=== PATIENT | male | born 1940 | race Caucasian/White ===

== ENCOUNTER 2017-08-16 18:03 | Inpatient (IN) ==
[2017-08-16] MEDS ORDERED: Acetaminophen 325 MG TABLET PO PRN (22:50)
[2017-08-16] MEDS ORDERED: *HR* Promethazine 25 MG/ML VIAL IVP PRN (22:50)
[2017-08-16] MEDS ORDERED: MOM Conc 10 ML UD.LIQ PO PRN (22:50)
[2017-08-16] MEDS ORDERED: *HR* HYDROcodone/Acet 5/325 mg TABLET PO PRN (22:50)
[2017-08-16] MEDS ORDERED: Naloxone 0.4 MG/ML INJ IVP PRN (22:50)
[2017-08-16] MEDS ORDERED: *HR* Morphine 2 MG/ML SYRINGE IVP PRN (22:50)
[2017-08-16] MEDS ORDERED: Nitroglycerin 0.4 MG TAB.SUBL SL PRN (22:52)
[2017-08-16] MEDS: *HR* Warfarin 3 MG TABLET PO SCH (23:37)
--- NOTE | 2017-08-17 00:44 | Internal Med History&Physical ---
Date of Encounter: 08/16/17 Time of Encounter: 23:00 Assessment and Plan (1) NSTEMI (non-ST elevated myocardial infarction) Current visit: Yes Status: Acute Concerned for acute TN with elevated Troponin, which started trending high now, and sudden onset tremors this morning, as well as non specific EKG changes slightly elevated ST segments in Prashant lateral leads compare to this morning Will keep him NPO Started him on ASA On Coumadin and Theraputic INR Resumed home med B kathy He is high risk pt for cardiac cath too, due to his KOBE will talk to Rejector in AM for possible Cardiac cath vs Stress test Mean while will get 2D echo (2) Atrial fibrillation with rapid ventricular response Current visit: No Status: Acute Will admit the pt into Tele Reviewed his previous EKG's in last week, he seems to be in Chronic Afib Unclear what triggered to RVR this time - possible TN d/c Cardizem -- not a good candidate for Cardizem due to his severe systolic dysfunction his HR well controlled now .. cont home med PO Metoprolol on coumadin for anticoag (3) Systolic CHF, chronic Current visit: Yes Status: Chronic stable..not in exacerbation reviewed 2 D Echo from 06/26 showed LVEF 15-20%, global dysfunction resumed all home meds except Lasix (4) CKD (chronic kidney disease) stage 4, GFR 15-29 ml/min Current visit: No Status: Chronic stable Cr (5) H/O thoracic aortic aneurysm repair Current visit: No Status: Chronic (6) H/O mitral valve replacement Current visit: No Status: Chronic s/p bio prosthetic valve replacement (7) Hypertension Current visit: No Status: Chronic stable with current meds Qualifiers: Hypertension type: essential hypertension Qualified Code(s): I10 - Essential (primary) hypertension (8) Dyslipidemia Current visit: No Status: Chronic on statin Internal Medicine - H&P: HPI Chief complaint: Generalized tremors, Afib with RVR Admitted From: Emergency Dept Plans for Post Hospital Care: Home History of present illness: Mr. Rangel is a 77 year old male with a past medical history of hypertension, CAD -- CABG, Chronic atrial fibrillation, hyperlipidemia, COPD, ischemic cardiomyopathy, mitral valve replacement with bovine tissue valve, thoracic aortic aneurysm pt presented to [facility] this morning c/o generalized tremors and shakiness all over the body which resolved sponatrenously. However he felt saome nasueadted and palpitation for which pt went to ER. After to coming the ER he happened to be n Afib with RVR with HR in 154, so he was given Cardizem bolus and started him on Cardizem gtt eventualy his HR came down to 60' s. Our hospitlaist team asked to admit the pt here at [facility] for further monitoring. When I examined the pt he is resting comfortably, denied any CP / SOB. Denied any new complaints. His Troponin went up to 0.99 from 0.05. Past Med Surg Social Fam HX - Past Medical History Medical history: aortic aneurysm, arthritis, atrial fibrillation, cardiomyopathy , CHF, COPD, GERD, hyperlipidemia, hypertension, kidney stones, osteoporosis, peripheral artery disease, renal disease, thyroid disease, valvular heart disease, other Psychiatric history: anxiety - Past Surgical History Surgical History: heart valve replacement, herniorrhaphy, vascular surgery - Social History Smoking Status: Never smoker Smokeless Tobacco Status: No Alcohol use: none Drug use: none - Family History Daughter Adopted: [place]: Allison Age: 34 Family Member Ethnicity: Non- Living Status: Still Living Hx Family Cardiac Disorders: No Hx Family Respiratory Disorders: No Hx Family Cancer: No Hx Family GI Disorders: No Hx Family Genitourinary Disorders: No Hx Family Endocrine Disorder: No Hx Family Musculoskeletal Disorders: No Hx Family Neuromuscular Disorders: No Hx Family Neurologic Disorders: No Hx Family HEENT Disorders: No Hx Family Autoimmune Disorders: No Hx Family Reproductive Disorders: No Hx Family Psychosocial Disorders: Yes (Asperger's syndrome) Hx Family Medical Disorders: No Mother Adopted: No Living Status: Hx Family Cardiac Disorders: No Hx Family Respiratory Disorders: No Hx Family Cancer: No Hx Family GI Disorders: Yes (bleeding ulcer) Hx Family Endocrine Disorder: No Hx Family Neuromuscular Disorders: No Hx Family Neurologic Disorders: No Hx Family HEENT Disorders: No Hx Family Autoimmune Disorders: No Father Adopted: No Living Status: Hx Family Cardiac Disorders: No Hx Family Respiratory Disorders: Yes (Emphysema) Hx Family Cancer: No Hx Family GI Disorders: No Hx Family Endocrine Disorder: No Hx Family Neuromuscular Disorders: No Hx Family Neurologic Disorders: No Hx Family HEENT Disorders: No Hx Family Autoimmune Disorders: No Sister Adopted: No Living Status: Hx Family Cardiac Disorders: No Hx Family Respiratory Disorders: Yes (pneumonia) Hx Family Cancer: No Hx Family GI Disorders: No Hx Family Endocrine Disorder: No Hx Family Neuromuscular Disorders: No Hx Family Neurologic Disorders: No Hx Family HEENT Disorders: No Hx Family Autoimmune Disorders: No Internal Medicine - H&P: Meds Finasteride [Proscar] 5 mg PO DAILY 07/23/15 [History] Furosemide [Lasix] 80 mg PO DAILY 07/23/15 [History] Potassium Citrate [Urocit-K] 20 meq PO DAILY 07/23/15 [History] Tamsulosin [Flomax] 0.4 mg PO DAILY 07/23/15 [History] Ferrous Gluconate 325 mg PO DAILY 09/06/15 [History] Metoprolol XL (24 HR) Succ [Toprol Xl] 25 mg PO DAILY #30 tab.er.24h 03/21/16 [ Rx] Nitroglycerin 0.4 mg SL Q5MIN PRN #20 tab.subl 03/21/16 [Rx] Ipratropium/Albuterol Sulfate [Combivent Respimat Inhal [place]] 4 gm IH PRN PRN 06/18/16 [History] Warfarin [Coumadin] 3 mg PO 1800 10/30/16 [History] Cholecalciferol (Vitamin D3) [Vitamin D] 1,000 unit PO QWEEK 02/14/17 [History] Montelukast [Singulair] 10 mg PO DAILY 08/16/17 [History] 3 Allergy/AdvReac Type Severity Reaction Status Date / Time Amoxicillin Allergy Difficulty Verified 08/12/17 23:38 Breathing metronidazole [From Flagyl] Allergy Rash Verified 08/12/17 23:38 sulfamethoxazole Allergy Rash Verified 08/12/17 23:38 [From Bactrim] trimethoprim [From Bactrim] Allergy Rash Verified 08/12/17 23:38 All Systems PM: A 10-system review of systems was performed and is negative for pertinent findings except as documented above in the HPI. Review of systems: All the systems are reviewed everything is benign except the systems and symptoms I mentioned in the history of present illness - Constitutional Vitals: Temp Pulse Resp BP Pulse Ox 98.4 F 68 18 121/71 95 08/16/17 23:59 08/16/17 23:59 08/16/17 23:59 08/16/17 23:59 08/16/17 23:59 General appearance: Present: A&O X 3, no acute distress, answers questions appropriately - Head Head exam: Present: atraumatic, normal inspection - Respiratory Respiratory exam: Present: decreased breath sounds, wheezes. Absent: rales, respiratory distress, rhonchi - Cardiovascular Cardiovascular exam: Present: irregular rhythm, +S1, +S2, systolic murmur - GI/Abdominal GI/Abdominal exam: Present: normal bowel sounds, soft. Absent: rebound, rigid, tenderness - Extremities Exam Extremities exam: Absent: calf tenderness, pedal edema, tenderness - Back Exam Back exam: Absent: CVA tenderness (L), CVA tenderness (R), rash noted - Neurological Exam Neurological exam: Present: alert, oriented X3 - Psychiatric Psychiatric exam: Present: normal affect, normal mood - Skin Skin exam: Absent: rash Internal Med - H&P Results - Labs Labs: Cardiac Enzymes 08/16/17 Range/Units 23:12 Troponin I 0.99 H* (0-0.03) ng/mL
[2017-08-17 05:34] LABS: INR 2.2
[2017-08-17 05:47] LABS: Calcium 8.7 mg/dL (8.6-10.8); Magnesium 2.1 mg/dL (1.6-2.6); Potassium 4.3 mEq/L (3.5-4.5)
[2017-08-17 05:51] LABS: Basophils % 0.4 %; Eosinophils # 0.1 K/mcL (0.0-0.6); Hemoglobin 10.9 g/dL (12.9-16.9); Immature Granulocytes % 0.4 % (0-4); Immature Platelets 3.7 % (1.1-6.1); Lymphocytes # 0.7 K/mcL (0.6-4.6); Lymphocytes % 13.1 %; Mean Corpuscular HGB Conc 30.3 g/dL (31.6-35.5); Mean Corpuscular Hemoglobin 25.8 pg (28.0-33.3); Mean Corpuscular Volume 85.3 fL (83.0-100.0); Mean Platelet Volume 10.5 fL (9.4-12.4); Monocytes # 0.6 K/mcL (0.0-1.3); Monocytes % 11.8 %; Neutrophils # 3.7 K/mcL (1.6-8.9); Platelet Count 102 K/mcL (140-400); Red Blood Count 4.22 M/mcL (4.19-5.50); Red Cell Distribution Width 17.8 % (11.5-14.5); Segmented Neutrophils % 73.3 %
[2017-08-17] MEDS ORDERED: Metoprolol XL (24 HR) Succ 25 MG TAB.ER.24H PO SCH (09:00)
[2017-08-17] MEDS: Aspirin Enteric Coated 81 MG Tablet PO SCH (10:33)
[2017-08-17] MEDS: Finasteride 5 MG TABLET PO SCH (10:33)
--- NOTE | 2017-08-17 11:04 | Cardiology Consult Note ---
Date of Encounter: 08/17/17 Time of Encounter: 11:00 Assessment and Plan (1) Elevated troponin Current Visit: Yes Status: Acute Per Cardiology: Atypical presentation with nausea and bilateral arm tremors. Denies any chest pain. Symptoms resolved. Troponins noted to be 0.85 and 0.99. Of note has past history of chronically elevated troponins of around 0.04-0.07. Demand ischemia versus non-STEMI. No cardiac rehabilitation consult warranted at this time. Patient discussed and reviewed with Dr. Barksdale, patient has decided to not pursue LHC at this time d/t CKD IV. Will medically manage and f/u as outpatient. Cardiology will sign off, re-consult as needed, follow-up for ICD evaluation will be rescheduled. (2) CAD (coronary artery disease) Current Visit: Yes Status: Chronic Per Cardiology: Known history of CAD and CABG. Last heart catheterization August 2011 showed mid LAD 100% lesion with distal LAD and diagonal branches filling from left to left collaterals, proximal circumflex 30-40%, mid ramus 30-40%, mid RCA 95% lesions-- recs to consider PCI of RCA at that time if clinically indicated. On aspirin, statin, beta kathy. Qualifiers: Coronary Disease-Associated Artery/Lesion type: [place] artery [place] vs. transplanted heart: [place] heart Associated angina: angina presence unspecified Qualified Code(s): I25.10 - Atherosclerotic heart disease of [place] coronary artery without angina pectoris (3) Systolic CHF, chronic Current Visit: Yes Status: Chronic Per Cardiology: BNP 3936-- about baseline. He has known ischemic cardiomyopathy. Current echo shows EF 10-15%-- unchanged from baseline. Bioprosthetic mitral valve remains unchanged from last echo. No pulmonary hypertension, mild RV dilation and mild RV hypokinesis. Rec resume Lasix since not going to have LHC. (4) Atrial fibrillation with rapid ventricular response Current Visit: No Status: Chronic Per Cardiology: Known history of atrial fibrillation and on Coumadin for anticoagulation. On beta kathy. Had previous been on amiodarone, however discontinued due to thyroid and pulmonary concerns. Rate controlled 90s currently. ECG on arrival showed A. fib in the 70s. Remains on Coumadin. (5) CKD (chronic kidney disease) stage 4, GFR 15-29 ml/min Current Visit: No Status: Chronic (6) H/O mitral valve replacement Current Visit: No Status: Chronic Per Cardiology: History of bovine tissue mitral valve replacement in 2010. Echo shows no significant changes from previous echo. (7) H/O thoracic aortic aneurysm repair Current Visit: No Status: Chronic Per Cardiology: History of thoracic aortic Repair in 1994. Discussion w patient/family: The assessment and plan as outlined above was discussed with the patient who expressed understanding and agreement. All questions were answered. Thank you for involving us in the care of your patient. Please call with any questions. History of Present Illness Consult date: 08/17/17 Consult reason: Elevated Trop History of present illness: Mr. Rangel is a 77 year old male with a relevant past medical history of hypertension, CAD, paroxysmal atrial fibrillation on Coumadin therapy, hyperlipidemia, COPD, ischemic cardiopathy with no ICD, history of mitral valve replacement with bovine tissue valve, and thoracic aortic aneurysm repair. Cardiology consult for elevated troponins. Patient reports yesterday afternoon developed epigastric nausea symptoms. He denied any vomiting. He reports he developed tremors to his bilateral arms. He denied any slurred speech, facial drooping, confusion, weakness to one side. He denies any chest pain or palpitations. Denies any dizziness, syncope, falls. Reports symptoms currently subsided. He does report over the past few weeks increase in fatigue and dyspnea on exertion from his baseline. He reports edema about baseline. He denies any recent fever, chills, vomiting, diarrhea, cough. Remains on Coumadin denies any active bleeding or blood loss. He reports had pending appointment see Dr. Jordan Lew yesterday afternoon to discuss possible ICD. Past Med Surg Social Fam HX - Past Medical History Attestation: Yes The following information was validated with the patient. Source: patient, old records reviewed Medical history: aortic aneurysm, arthritis, atrial fibrillation, cardiomyopathy , CHF, COPD, GERD, hyperlipidemia, hypertension, kidney stones, osteoporosis, peripheral artery disease, renal disease, thyroid disease, valvular heart disease, other Psychiatric history: anxiety - Past Surgical History Surgical History: heart valve replacement, herniorrhaphy, vascular surgery - Social History Smoking Status: Never smoker Smokeless Tobacco Status: No Alcohol use: none Drug use: none - Family History Daughter Adopted: [place]: [place] Age: 34 Family Member Ethnicity: Non- Living Status: Still Living Hx Family Cardiac Disorders: No Hx Family Respiratory Disorders: No Hx Family Cancer: No Hx Family GI Disorders: No Hx Family Genitourinary Disorders: No Hx Family Endocrine Disorder: No Hx Family Musculoskeletal Disorders: No Hx Family Neuromuscular Disorders: No Hx Family Neurologic Disorders: No Hx Family HEENT Disorders: No Hx Family Autoimmune Disorders: No Hx Family Reproductive Disorders: No Hx Family Psychosocial Disorders: Yes (Asperger's syndrome) Hx Family Medical Disorders: No Mother Adopted: No Living Status: Hx Family Cardiac Disorders: No Hx Family Respiratory Disorders: No Hx Family Cancer: No Hx Family GI Disorders: Yes (bleeding ulcer) Hx Family Endocrine Disorder: No Hx Family Neuromuscular Disorders: No Hx Family Neurologic Disorders: No Hx Family HEENT Disorders: No Hx Family Autoimmune Disorders: No Father Adopted: No Living Status: Hx Family Cardiac Disorders: No Hx Family Respiratory Disorders: Yes (Emphysema) Hx Family Cancer: No Hx Family GI Disorders: No Hx Family Endocrine Disorder: No Hx Family Neuromuscular Disorders: No Hx Family Neurologic Disorders: No Hx Family HEENT Disorders: No Hx Family Autoimmune Disorders: No Sister Adopted: No Living Status: Hx Family Cardiac Disorders: No Hx Family Respiratory Disorders: Yes (pneumonia) Hx Family Cancer: No Hx Family GI Disorders: No Hx Family Endocrine Disorder: No Hx Family Neuromuscular Disorders: No Hx Family Neurologic Disorders: No Hx Family HEENT Disorders: No Hx Family Autoimmune Disorders: No Medications and Allergies Finasteride [Proscar] 5 mg PO DAILY 07/23/15 [History] Furosemide [Lasix] 80 mg PO DAILY 07/23/15 [History] Potassium Citrate [Urocit-K] 20 meq PO DAILY 07/23/15 [History] Tamsulosin [Flomax] 0.4 mg PO DAILY 07/23/15 [History] Ferrous Gluconate 325 mg PO DAILY 09/06/15 [History] Nitroglycerin 0.4 mg SL Q5MIN PRN #20 tab.subl 03/21/16 [Rx] Ipratropium/Albuterol Sulfate [Combivent Respimat Inhal [place]] 4 gm IH PRN PRN 06/18/16 [History] Warfarin [Coumadin] 3 mg PO DAILY 10/30/16 [History] Montelukast [Singulair] 10 mg PO DAILY 08/16/17 [History] Ergocalciferol (VITAMIN D2) [Vitamin D2] 50,000 unit PO QWEEK 08/17/17 [History] Metoprolol XL (24 HR) Succ [Toprol XL] 50 mg PO DAILY PRN 08/17/17 [History] traZODone [TraZODone] 50 mg PO HS 08/17/17 [History] 3 Allergy/AdvReac Type Severity Reaction Status Date / Time Amoxicillin Allergy Difficulty Verified 08/12/17 23:38 Breathing metronidazole [From Flagyl] Allergy Rash Verified 08/12/17 23:38 sulfamethoxazole Allergy Rash Verified 08/12/17 23:38 [From Bactrim] trimethoprim [From Bactrim] Allergy Rash Verified 08/12/17 23:38 All Systems Review: A 10-system review of systems was performed and is negative for pertinent findings except as documented above in the HPI. - Constitutional Constitutional: fatigue - Cardiovascular Cardiovascular: as per HPI, dyspnea on exertion, leg edema - Gastrointestinal Gastrointestinal: nausea - Musculoskeletal Musculoskeletal: other (upper extremity tremors as HPI) Physical Examination Vital Signs, Last 4 Hours Pulse Ox 08/17/17 07:36 99 Selected Entries 08/17/17 07:00 08/17/17 07:36 08/17/17 10:21 Temperature 98.2 F Pulse Rate 77 Respiratory Rate 17 Blood Pressure 129/69 O2 Sat by Pulse Oximetry 99 Oxygen Flow Rate (LPM) 2 Oxygen Delivery Method Nasal Cannula General: Conversant, No Apparent Distress HEENT: Atraumatic, Normocephaly, Mucus Membranes Moist Neck: No JVD, Normal carotid pulses Cardiac: No Murmur, Other (irregularly irregular) Lungs: Normal Breath Sounds, No Wheeze, Rales, Rhonchi Neuro: Alert and responsive, No focal deficits noted Abdomen: Soft, Non-Tender Skin: No rashes noted on visualized skin Musculoskeletal: No Chest Wall Tenderness Extremities: No Clubbing, No Cyanosis, Normal Pulses, Other (+1 nonpitting bilateral LE edema) Results 08/17/17 05:41 08/17/17 05:11 Lab Results Laboratory Tests 06/10/17 08/12/17 08/16/17 12:47 23:35 14:00 INR Creatinine 2.81 H 2.54 H 2.78 H Est GFR (Non-Af Amer) 22 L 25 L 22 L Magnesium Troponin I LDL Cholesterol, Calc 08/16/17 08/16/17 08/17/17 14:00 23:12 05:11 INR Creatinine 2.66 H Est GFR (Non-Af Amer) 23 L Magnesium 2.1 Troponin I 0.05 H* 0.99 H* LDL Cholesterol, Calc 75 08/17/17 08/17/17 05:11 05:11 INR 2.2 Creatinine Est GFR (Non-Af Amer) Magnesium Troponin I 0.85 H* LDL Cholesterol, Calc Laboratory Tests 08/16/17 14:00 B-Natriuretic Peptide 3936 H ITS Impressions Echocardiogram 08/17/17 01:02 Impressions: LVEF 10-15%, dilated Severe global left ventricular systolic dysfunction. No pulmonary hypertension. 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 Findings: Study Quality * Technically adequate exam. Interatrial Septum * No evidence of PFO by color Doppler. Aorta * Normally sized aortic root. Pericardium * The pericardium appears normal. Left Ventricle * LVEF 10-15%, dilated * Severe global left ventricular systolic dysfunction. * Indeterminate diastolic function. Mitral Valve * Bioprosthetic present with gradient essentially unchanged from previous echo 2016 * Trace mitral regurgitation. * Mean transmitral gradient is mean 7mm Hg mmHg. Aortic Valve * Normal aortic valve structure. * Mild aortic regurgitation. * No aortic stenosis. Left Atrium * Severely dilated left atrium. Tricuspid Valve * Estimated RVSP is 20 mmHg. * No pulmonary hypertension. * Estimated RA pressure is 10-15 mmHg. Pulmonic Valve * No pulmonic stenosis. * Mild pulmonic regurgitation. ECG Findings * Atrial fibrillation. Right Atrium * Severely dilated right atrium. Right Ventricle * Mildly dilated right ventricle. * Mild right ventricular hypokinesis. Intake & Output 08/14/17 08/15/17 08/16/17 08/17/17 23:59 23:59 23:59 23:59 Intake Total 0 / 0 0 / 0 Output Total 0 / 0 225 / 225 Balance 0 / 0 -225 / -225 Weight 73.5 kg Active Medications Acetaminophen (Tylenol) 650 mg PO Q6HR PRN PRN Reason: Mild Pain (1-3) Stop: 02/15/18 22:51 Hydrocodone Bitart/Acetaminophen ([place] 5-325 Mg) 1 tab PO Q4HR PRN PRN Reason: Moderate Pain (4-6) Stop: 02/15/18 22:51 Aspirin (Aspirin Ec) 81 mg PO DAILY [facility] Stop: 02/16/18 09:01 Last Admin: 08/17/17 10:33 Dose: 81 mg Docusate Sodium (Colace) 100 mg PO BID PRN PRN Reason: Constipation Stop: 02/15/18 22:51 Ferrous Sulfate (Ferrous Sulfate) 325 mg PO DAILY [facility] Stop: 02/16/18 09:01 Last Admin: 08/17/17 10:33 Dose: 325 mg Finasteride (Proscar) 5 mg PO DAILY [facility] PRN Reason: Protocol Stop: 02/16/18 09:01 Last Admin: 08/17/17 10:33 Dose: 5 mg Magnesium Hydroxide (Milk Of Magnesia Conc) 10 ml PO DAILY PRN PRN Reason: Indigestion Stop: 02/15/18 22:51 Metoprolol Succinate (Toprol Xl) 25 mg PO DAILY [facility] Stop: 02/16/18 09:01 Last Admin: 08/17/17 10:34 Dose: 25 mg Montelukast Sodium (Singulair) 10 mg PO DAILY [facility] Stop: 02/16/18 09:01 Last Admin: 08/17/17 10:34 Dose: 10 mg Morphine Sulfate (Morphine Sulfate) 2 mg IVP Q4HR PRN PRN Reason: Severe Pain (7-10) Stop: 02/15/18 22:51 Naloxone HCl (Narcan) 0.4 mg IVP Q2MIN PRN PRN Reason: Opioid Reversal Stop: 02/15/18 22:51 Nitroglycerin (Nitroglycerin) 0.4 mg SL Q5MIN PRN PRN Reason: Chest Pain Stop: 02/15/18 22:53 Promethazine HCl (Phenergan) 12.5 mg IVP Q6HR PRN PRN Reason: Nausea And Vomiting Stop: 02/15/18 22:51 Tamsulosin HCl (Flomax) 0.4 mg PO DAILY [facility] PRN Reason: Protocol Stop: 02/16/18 09:01 Last Admin: 08/17/17 10:33 Dose: 0.4 mg Vitamin D (Vitamin D) 1,000 unit PO QWEEK [facility] Stop: 02/17/18 09:01 Warfarin Sodium (Coumadin) 3 mg PO 1800 [facility] Stop: 02/15/18 23:16 Last Admin: 08/16/17 23:37 Dose: 3 mg Warfarin Sodium (Coumadin Perpt) 1 each PO DAILY@1800 PRN PRN Reason: SEE COMMENTS Stop: 02/16/18 18:01 - Imaging and Cardiology Echo: report reviewed - EKG Interpretation EKG results cardiology: personally reviewed (afib 70's), other (Telemetry shows atrial fibrillation in the 90s) Consult Discharge Plan - Plan Referrals: Keanu Elizabeth MD [Primary Care Provider] -
[2017-08-17] MEDS ORDERED: Metoprolol XL (24 HR) Succ 50 MG TAB.ER.24H PO PRN (11:35)
[2017-08-17] MEDS ORDERED: Metoprolol XL (24 HR) Succ 25 MG TAB.ER.24H PO ONE (11:45)
[2017-08-17] MEDS: Furosemide 40 MG TABLET PO SCH (13:50)
[2017-08-17] MEDS: *HR* Warfarin 3 MG TABLET PO SCH (17:28)
[2017-08-17] MEDS ORDERED: Warfarin perPT PO PRN (18:00)
--- NOTE | 2017-08-17 18:12 | Internal Med Progress Note ---
Date of Encounter: 08/17/17 Time of Encounter: 13:30 - Assessment and plan (1) NSTEMI (non-ST elevated myocardial infarction) Current Visit: Yes Status: Acute Assessment and plan: Hemodynamically stable at this time. Medical management. (2) Congestive heart failure Current Visit: No Status: Acute Assessment and plan: Diuresis as able. Currently his symptoms are improving. Qualifiers: Congestive heart failure type: combined Congestive heart failure chronicity : acute on chronic Qualified Code(s): I50.43 - Acute on chronic combined systolic (congestive) and diastolic (congestive) heart failure (3) Atrial fibrillation Current Visit: Yes Status: Acute Assessment and plan: Had rapid rate on admit. Rate has improved at this time. Qualifiers: Atrial fibrillation type: chronic Qualified Code(s): I48.2 - Chronic atrial fibrillation (4) CAD (coronary artery disease) Current Visit: Yes Status: Chronic Assessment and plan: Continue medical management. Qualifiers: Coronary Disease-Associated Artery/Lesion type: [place] artery [place] vs. transplanted heart: [place] heart Associated angina: without angina Qualified Code(s): I25.10 - Atherosclerotic heart disease of [place] coronary artery without angina pectoris (5) Hypertension Current Visit: No Status: Chronic Assessment and plan: Controlled at this time. Continue meds. Qualifiers: Hypertension type: essential hypertension Qualified Code(s): I10 - Essential (primary) hypertension (6) CKD (chronic kidney disease) stage 4, GFR 15-29 ml/min Current Visit: No Status: Chronic Assessment and plan: Avoid nephrotoxins. Monitor renal function. (7) H/O mitral valve replacement Current Visit: No Status: Chronic - Subjective Interval history: Mr Rangel is currently admitted for acute rapid atrial fibrillation and probable NSTEMI. He remains moderate to high risk due to potential for worsening cardiac status. Mr Rangel feels OK. He is breathing somewhat better. No CP. No fever or chills. No GI issues. Has been seen by cardiology and appreciate input. - Constitutional Vitals: Temp Pulse Resp BP Pulse Ox 97.8 F 96 19 143/98 90 08/17/17 14:36 08/17/17 14:36 08/17/17 14:36 08/17/17 14:36 08/17/17 14:36 General appearance: Present: A&O X 3, pleasant, answers questions appropriately - Head Head exam: Present: normocephalic - Eye Eye exam: Present: EOMI, conjuntiva pink - ENT ENT exam: Present: mucous membranes moist - Respiratory Respiratory exam: Present: decreased breath sounds, rales. Absent: rhonchi, wheezes - Cardiovascular Cardiovascular exam: Present: distant heart sounds, irregular rhythm. Absent: tachycardia - GI/Abdominal GI/Abdominal exam: Present: soft. Absent: tenderness - Extremities Exam Extremities exam: Present: warm. Absent: tenderness - Neurological Exam Neurological exam: Present: alert, oriented X3 - Skin Skin exam: Present: warm. Absent: rash Internal Medicine: Result - Labs CBC & Chem 7: 08/17/17 05:41 08/17/17 05:11 Labs: Short CBC 08/17/17 Range/Units 05:41 WBC 5.0 (4.3-11.1) K/mcL Hgb 10.9 L (12.9-16.9) g/dL Hct 36.0 L (37.5-50.1) % Plt Count 102 L (140-400) K/mcL Neutrophils # 3.7 (1.6-8.9) K/mcL BMP 08/17/17 05:11 Sodium 142 Potassium 4.3 Chloride 107 Carbon Dioxide 30 H BUN 45 H Creatinine 2.66 H Glucose 84 Calcium 8.7 Cardiac Enzymes 08/16/17 08/17/17 Range/Units 23:12 05:11 Troponin I 0.99 H* 0.85 H* (0-0.03) ng/mL - ABG Interpretation ABG results: PT/INR, D-dimer PT 24.0 Seconds (9.4-12.1) H 08/17/17 05:11 - Impressions Impressions Echocardiogram 08/17/17 01:02 Impressions: LVEF 10-15%, dilated Severe global left ventricular systolic dysfunction. No pulmonary hypertension. 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 Findings: Study Quality * Technically adequate exam. Interatrial Septum * No evidence of PFO by color Doppler. Aorta * Normally sized aortic root. Pericardium * The pericardium appears normal. Left Ventricle * LVEF 10-15%, dilated * Severe global left ventricular systolic dysfunction. * Indeterminate diastolic function. Mitral Valve * Bioprosthetic present with gradient essentially unchanged from previous echo 2016 * Trace mitral regurgitation. * Mean transmitral gradient is mean 7mm Hg mmHg. Aortic Valve * Normal aortic valve structure. * Mild aortic regurgitation. * No aortic stenosis. Left Atrium * Severely dilated left atrium. Tricuspid Valve * Estimated RVSP is 20 mmHg. * No pulmonary hypertension. * Estimated RA pressure is 10-15 mmHg. Pulmonic Valve * No pulmonic stenosis. * Mild pulmonic regurgitation. ECG Findings * Atrial fibrillation. Right Atrium * Severely dilated right atrium. Right Ventricle * Mildly dilated right ventricle. * Mild right ventricular hypokinesis. Consult Discharge Plan - Plan Referrals: Keanu Elizabeth MD [Primary Care Provider] -
[2017-08-17] MEDS ORDERED: traZODone 50 MG TABLET PO PRN (21:00)
[2017-08-18 07:33] LABS: Hematocrit 34.9 % (37.5-50.1); Hemoglobin 10.7 g/dL (12.9-16.9); Mean Corpuscular HGB Conc 30.7 g/dL (31.6-35.5); Mean Corpuscular Hemoglobin 26.3 pg (28.0-33.3); Mean Corpuscular Volume 85.7 fL (83.0-100.0); Mean Platelet Volume 10.4 fL (9.4-12.4); Platelet Count 111 K/mcL (140-400); Red Blood Count 4.07 M/mcL (4.19-5.50); Red Cell Distribution Width 17.3 % (11.5-14.5)
[2017-08-18 07:37] LABS: Prothrombin Time 22.4 Seconds (9.4-12.1)
[2017-08-18 08:08] LABS: Calcium 8.6 mg/dL (8.6-10.8); Potassium 4.4 mEq/L (3.5-4.5)
[2017-08-18] MEDS ORDERED: Metoprolol XL (24 HR) Succ 50 MG TAB.ER.24H PO SCH (09:00)
[2017-08-18] MEDS ORDERED: Cholecalciferol (D-3) 1,000 UNIT TABLET PO SCH (09:00)
[2017-08-18] MEDS ORDERED: Potassium Citrate 10 MEQ TABLET.ER PO SCH (09:00)
[2017-08-18] MEDS: Aspirin Enteric Coated 81 MG Tablet PO SCH (09:15)
[2017-08-18] MEDS: Furosemide 40 MG TABLET PO SCH (09:16)
[2017-08-18] MEDS: Finasteride 5 MG TABLET PO SCH (09:16)
--- NOTE | 2017-08-18 12:09 | Discharge Summary ---
Date of Encounter: 08/18/17 Time of Encounter: 08:30 - Discharge Diagnosis (1) NSTEMI (non-ST elevated myocardial infarction) Priority: Primary Status: Acute (2) Congestive heart failure Priority: Primary Status: Acute Qualifiers: Congestive heart failure type: combined Congestive heart failure chronicity : acute on chronic Qualified Code(s): I50.43 - Acute on chronic combined systolic (congestive) and diastolic (congestive) heart failure (3) Atrial fibrillation Priority: Secondary Status: Acute Qualifiers: Atrial fibrillation type: chronic Qualified Code(s): I48.2 - Chronic atrial fibrillation (4) CAD (coronary artery disease) Priority: Secondary Status: Chronic Qualifiers: Coronary Disease-Associated Artery/Lesion type: [place] artery [place] vs. transplanted heart: [place] heart Associated angina: without angina Qualified Code(s): I25.10 - Atherosclerotic heart disease of [place] coronary artery without angina pectoris (5) Hypertension Priority: Secondary Status: Chronic Qualifiers: Hypertension type: essential hypertension Qualified Code(s): I10 - Essential (primary) hypertension (6) CKD (chronic kidney disease) stage 4, GFR 15-29 ml/min Priority: Secondary Status: Chronic (7) H/O mitral valve replacement Priority: Secondary Status: Chronic - Discharge Medications Home Medications: Finasteride [Proscar] 5 mg PO DAILY 07/23/15 [History] Furosemide [Lasix] 80 mg PO DAILY 07/23/15 [History] Potassium Citrate [Urocit-K] 20 meq PO DAILY 07/23/15 [History] Tamsulosin [Flomax] 0.4 mg PO DAILY 07/23/15 [History] Ferrous Gluconate 325 mg PO DAILY 09/06/15 [History] Nitroglycerin 0.4 mg SL Q5MIN PRN #20 tab.subl 03/21/16 [Rx] Ipratropium/Albuterol Sulfate [Combivent Respimat Inhal [place]] 4 gm IH PRN PRN 06/18/16 [History] Warfarin [Coumadin] 3 mg PO DAILY 10/30/16 [History] Montelukast [Singulair] 10 mg PO DAILY 08/16/17 [History] Ergocalciferol (VITAMIN D2) [Vitamin D2] 50,000 unit PO QWEEK 08/17/17 [History] Metoprolol XL (24 HR) Succ [Toprol Xl] 50 mg PO DAILY PRN 08/17/17 [History] traZODone [TraZODone] 50 mg PO HS 08/17/17 [History] Aspirin Enteric Coated [Aspirin EC] 81 mg PO DAILY tablet. 08/18/17 [Rx] Cholecalciferol (D-3) [Vitamin D] 1,000 unit PO QWEEK tablet 08/18/17 [Rx] Allergies/Adverse Reactions: 3 Allergy/AdvReac Type Severity Reaction Status Date / Time Amoxicillin Allergy Difficulty Verified 08/12/17 23:38 Breathing metronidazole [From Flagyl] Allergy Rash Verified 08/12/17 23:38 sulfamethoxazole Allergy Rash Verified 08/12/17 23:38 [From Bactrim] trimethoprim [From Bactrim] Allergy Rash Verified 08/12/17 23:38 Procedures/tests Complete & Pending: Procedures Performed prior 72 hours Category Date Time Status ECG 12 lead ECG [ECG] AM 0600 Y 08/17/17 06:00 Ordered EV echocardiogram Routine Y 08/17/17 01:02 Completed Date of admission: 08/17/17 01:02 Primary care physician: Keanu Elizabeth Consults: 08/17/17 01:03 Consult to Cardiology [CONS] Routine Comment: Consulting Provider: Cardiology Gege Reason for Consult: Acute NSTEMI Call Completed: Yes Discharging clinician: Puneet Anderson Anticipated date of discharge: 08/18/17 - Patient Status Disposition: Home, Self-Care Condition: Fair Functional capacity at discharge: independent ambulation Overall status at discharge: patient is progressing back to baseline - Discharge Instructions Follow Up With: Keanu Elizabeth MD [Primary Care Provider] - - Diet and Activity Activity: increase activity as tolerated Diet: advance to your usual diet Hospital course: Mr. Rangel is a 77 year old male with hx of severe ischemic cardiomyopathy presented to [place] ED with complaints of shakiness and tremors. He had nausea and palpitations as well. In ED he was in rapid a fib and was started on Cardizem drip with improvement. He was transferred to [facility] for further evaluation and treatment. Mr Rangel was admitted to med surg. He was taken off Card drip. He had significant increase in his troponin. He was evaluated by cardiology. There was consideration for [facility] but due to CKD 4 and the need to be off coumadin the patient decided against procedure and elected medical management. He was restarted on his usual medications. He had no acute issues overnight on 08/17. In the morning of 08/18 he felt he was at baseline. He was able to ambulate. He was afebrile with stable vitals. With ambulation he did not need oxygen. At that time he was felt stable for discharge home. He has originally been placed in full admit status due to acute NSTEMI but is now stable for discharge home. It was anticipated he would be hospitalized for greater than 2 midnights for further evaluation of NSTEMI but he has elected medical management only and therefore has been discharged in less than 2 midnights. - Time Spent with Patient Total time spent providing and/or coordinating discharge services: 41min - Constitutional Vitals: Temp Pulse Resp BP Pulse Ox 98.4 F 85 17 132/79 98 08/18/17 09:15 08/18/17 07:00 08/18/17 07:00 08/18/17 07:00 08/18/17 07:00 General appearance: Present: A&O X 3, pleasant, answers questions appropriately - Head Head exam: Present: normocephalic - Eye Eye exam: Present: EOMI, PERRL, conjuntiva pink - ENT ENT exam: Present: mucous membranes dry - Respiratory Respiratory exam: Present: rales. Absent: rhonchi, wheezes Additional comments: Scattered L basilar rales. No wheeze or rhonchi. - Cardiovascular Cardiovascular exam: Present: irregular rhythm. Absent: tachycardia - GI/Abdominal GI/Abdominal exam: Present: soft. Absent: tenderness - Extremities Exam Extremities exam: Present: warm. Absent: tenderness - Neurological Exam Neurological exam: Present: alert, oriented X3 - Skin Skin exam: Present: warm. Absent: rash
[2017-08-18] MEDS ORDERED: FLUARIX QUAD 2017-18 36MOS UP/PF 0.5 ML SYRINGE IM ONE (13:36)
[2017-08-18 16:29] VITALS: BP 115/77
--- NOTE | 2017-08-19 18:39 | Electrocardiograph Report ---
[address] [place] [address] Test Date: 2017-08-17 Pat Name: Kvng Rangel Department: 111 Room: 2NE29 Gender: M Hook Up: : 1940 Requested By: Christofer Brown Order Number: [id number] Reading MD: Jose Barksdale MD Measurements Intervals [place] Rate: 73 P: [place]: 0 QRS: -78 QRSD: 126 T: 82 QT: 454 QTc: 480 Interpretive Statements ATRIAL FIBRILLATION MARKED LEFT AXIS DEVIATION INFERIOR MYOCARDIAL INFARCTION, PROBABLY OLD ANTEROLATERAL MYOCARDIAL INFARCTION, PROBABLY RECENT Electronically Signed On 08-19-2017 18:38:09 EDT by Jose Barksdale MD
== END 2017-08-18 15:35 | disposition home or self-care (01) | DRG 280 ==
LOC: 2NENU
PROVIDERS: ADMIT Hospitalist; ATTEND Internal Medicine

== ENCOUNTER 2018-08-01 11:07 | Inpatient (IN) ==
[2018-08-01] MEDS ORDERED: Naloxone 0.4 MG/ML INJ IVP PRN (14:04)
--- NOTE | 2018-08-01 14:17 | Internal Med History&Physical ---
<Adams Mccauley S - Last Filed: 08/01/18 14:08> Date of Encounter: 08/01/18 Time of Encounter: 14:17 Internal Medicine - H&P: HPI Chief complaint: "feeling like I was dying" Admitted From: Hospital to Hospital Transfer Plans for Post Hospital Care: Home History of present illness: Mr. Rangel is a 78 year old male with a PMH of a fib, arthritis, cardiomyopathy, thyroid disease, osteoporosis, PAD, HTN, GERD and HDL. He presented to the [facility] as a transfer from [facility]. He was recently hospitalized for his "bowel twisting onto itself" and is s/p ex lap [address] [facility]. 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 Of note, he also had a recent GIB tx at [facility] about 2 wks ago for diverticulosis. Pt was transferred to an SNF for rehab and reports that this morning he began having feeling "that he was dying." He has SOB increasing from his baseline, he is chronically on 2-3L of O2 at home. The pt denies any chest pain or palpiltations with these feeling that he was dying. The pt was brought to [facility] from the SNF and was found to be in A fib with RVR -he had a SBP of 88 on arrival -was given 0.25 of digoxin and fluids -started on a cardizem drip EKG showed a fib with RVR, HR 131 bpm as per the note from [facility] ED -t wave inversion in aVL, lead 1 -no ST elevation/depression Past Med Surg Social Fam HX - Past Medical History Medical history: aortic aneurysm, arthritis, atrial fibrillation, cardiomyopathy , CHF, COPD, GERD, hyperlipidemia, hypertension, kidney stones, osteoporosis, peripheral artery disease, renal disease, thyroid disease, valvular heart disease, other Additional medical history: SPINAL STENOSIS Psychiatric history: anxiety - Past Surgical History Surgical History: heart valve replacement, herniorrhaphy, vascular surgery Additional surgical history: Umbilical hernia repair. aortic anuerysm repair. mitral valve replacement - Social History Smoking Status: Never smoker Smokeless Tobacco Status: No Alcohol use: rarely Drug use: none - Family History Daughter Adopted: No Family Member Ethnicity: Non- Living Status: Still Living Hx Family Cardiac Disorders: No Hx Family Respiratory Disorders: No Hx Family Cancer: No Hx Family GI Disorders: No Hx Family Endocrine Disorder: No Hx Family Neuromuscular Disorders: No Hx Family Neurologic Disorders: No Hx Family HEENT Disorders: No Hx Family Autoimmune Disorders: No Mother Adopted: No Living Status: Hx Family Cardiac Disorders: No Hx Family Respiratory Disorders: No Hx Family Cancer: No Hx Family GI Disorders: Yes (bleeding ulcer) Hx Family Endocrine Disorder: No Hx Family Neuromuscular Disorders: No Hx Family Neurologic Disorders: No Hx Family HEENT Disorders: No Hx Family Autoimmune Disorders: No Father Adopted: No Living Status: Hx Family Cardiac Disorders: No Hx Family Respiratory Disorders: Yes (Emphysema) Hx Family Cancer: No Hx Family GI Disorders: No Hx Family Endocrine Disorder: No Hx Family Neuromuscular Disorders: No Hx Family Neurologic Disorders: No Hx Family HEENT Disorders: No Hx Family Autoimmune Disorders: No Sister Adopted: No Living Status: Hx Family Cardiac Disorders: No Hx Family Respiratory Disorders: Yes (pneumonia) Hx Family Cancer: No Hx Family GI Disorders: No Hx Family Endocrine Disorder: No Hx Family Neuromuscular Disorders: No Hx Family Neurologic Disorders: No Hx Family HEENT Disorders: No Hx Family Autoimmune Disorders: No Internal Medicine - H&P: Meds Potassium Citrate [Urocit-K] 10 meq PO DAILY 07/23/15 [History] Tamsulosin [Flomax] 0.4 mg PO DAILY 07/23/15 [History] Montelukast [Singulair] 10 mg PO DAILY 08/16/17 [History] Aspirin Enteric Coated [Aspirin EC] 81 mg PO DAILY tablet. 08/18/17 [Rx] Metoprolol XL (24 HR) Succ [Toprol Xl] 50 mg PO DAILY 09/23/17 [History] Ipratropium/Albuterol Sulfate [Combivent Respimat Inhal [place]] 4 gm IH Q6HR PRN 11/20/17 [History] Besifloxacin HCl [Besivance] 5 ml OP BID 08/01/18 [History] Difluprednate [Durezol] 5 ml OP BID 08/01/18 [History] Finasteride [Proscar] 5 mg PO DAILY 08/01/18 [History] Oxycodone HCl [Roxybond] 5 mg PO Q4H 08/01/18 [History] 3 Allergy/AdvReac Type Severity Reaction Status Date / Time Amoxicillin Allergy Difficulty Verified 08/01/18 09:48 Breathing metronidazole [From Flagyl] Allergy Rash Verified 08/01/18 09:48 sulfamethoxazole Allergy Rash Verified 08/01/18 09:48 [From Bactrim] trimethoprim [From Bactrim] Allergy Rash Verified 08/01/18 09:48 All Systems PM: A 10-system review of systems was performed and is negative for pertinent findings except as documented above in the HPI. - Constitutional Constitutional: no fever(s), no falls - Cardiovascular Cardiovascular ROS IM: dyspnea, dyspnea on exertion, no irregular heart rhythm, no palpitations, no paroxysmal nocturnal dyspnea - Respiratory Respiratory: cough, dyspnea on exertion - Gastrointestinal Gastrointestinal: no abdominal pain, no diarrhea, no nausea - Musculoskeletal Musculoskeletal ROS IM: no arthralgias, no tingling - Integumentary Integumentary IM: no rash - Constitutional General appearance: Present: cooperative, A&O X 3, pleasant Exam: x - Head Head exam: Present: atraumatic, normal inspection - Respiratory Respiratory exam: Present: decreased breath sounds - Cardiovascular Cardiovascular exam: Present: irregular rhythm - GI/Abdominal GI/Abdominal exam: Present: distended, no peritoneal signs. Absent: firm, guarding, tenderness - Incison Incision: Present: clean and dry, intact - Psychiatric Psychiatric exam: Present: normal affect, normal mood - Skin Additional comments: 2+ edema B/L LE - Assessment and plan (1) NSTEMI (non-ST elevated myocardial infarction) Current Visit: Yes Status: Acute Assessment and plan: Troponin of 0.07 on admission (13:30) - last troponin drawn was at 10AM and was 0.07 - BNP 3007 Most likely a type II ND secondary to demand ischemia EKG at [facility] - showed a fib with RVR, HR 131 bpm as per the note from [facility] ED - t wave inversion in aVL, lead 1 - no ST elevation/depression Pt last ECHO 08/2017 -LVEF 10-15% with dilateion -severe LV systolic fysfxn - mitral bioprostetic present - severly dilated atrium CXR showed pulmonary edema vs pneumonia Currently the pt is not in active chest pain, denies palpiltations. SOB at baseline. Nonproductive cough present. 2+ pitting edema B/L LE. Plan: -d/c cardizem drip - monitor BP and HR, vitals q4hr - trend troponins - pt is on Toprol and ASA for CAD, ordered Lipitor 40mg PO hs - if ok with cardiology, should start an ELLIOTT or ARB or spironolactone due to severly decrease LVEF - cardiology consulted, spoke with Dr. Blackwood - PTOT consult - Lasix 40mg IVP q8hr - ECHO pending - cardiac diet - pt is on Coumadin at home, check PT/INR at 6pm (1800) (2) Pulmonary edema Current Visit: Yes Status: Acute Assessment and plan: Pt has had increasing SOB from baseline, currently on 3L O2 CXR showed - No significant change in bilateral pleural effusions and associated airspace disease. - Findings could represent pulmonary edema or pneumonia. ECHO in 08/2017 showed LVEF 10-15% Plan: - IV lasix 40mg q8hr Qualifiers: Chronicity: acute Qualified Code(s): J81.0 - Acute pulmonary edema (3) Acute on chronic systolic (congestive) heart failure Current Visit: Yes Status: Acute Assessment and plan: Pt presents with acute exacerbation of CHF -last ECHO in 08/2017 showed LVEF 10-15%, severe systolic dysfxn CXR No significant change in bilateral pleural effusions and associated airspace disease. -Findings could represent pulmonary edema or pneumonia. Plan: - cardioloy consult - ECHO pending - lasix 40mg IVP q8hr - cardiac diet - on ASA, Toprol; start Artorvastatin 40mg PO hs (4) Atrial fibrillation Current Visit: Yes Status: Chronic Assessment and plan: Pt has a hx of chronic A fib. [facility] and was brought to [facility] ED, transferred to [facility]. - Rate control with toprol, on Coumadin EKG showed a fib with RVR, HR 131 bpm as per the note from [facility] ED -t wave inversion in aVL, lead 1 - no ST elevation/depression - See plan as above (5) GERD (gastroesophageal reflux disease) Current Visit: No Status: Chronic Assessment and plan: Chronic Qualifiers: Esophagitis presence: without esophagitis Qualified Code(s): K21.9 - Gastro -esophageal reflux disease without esophagitis (6) DVT prophylaxis Current Visit: Yes Status: Acute Assessment and plan: On Coumadin -continue home med -check PT/INR at 6pm (7) Status post small bowel resection Current Visit: No Status: Chronic Assessment and plan: s/p SBO and bowel resection, 4 days - denies any N/V - tolerating diet - no pain - incision is clean and dry, intact (8) CAD (coronary artery disease) Current Visit: No Status: Chronic Assessment and plan: On ASA 81mg PO daily, Toprol 50mg PO daily -should be on statin , will start Artorvastatin 40mg PO daily Qualifiers: Coronary Disease-Associated Artery/Lesion type: [place] artery [place] vs. transplanted heart: qu[place] heart Associated angina: without angina Qualified Code(s): I25.10 - Atherosclerotic heart disease of [place] coronary artery without angina pectoris (9) H/O mitral valve replacement Current Visit: No Status: Chronic Assessment and plan: s/p MV replacement in 2010 (10) Hypertension Current Visit: No Status: Chronic Assessment and plan: Chronic -on Toprol 50 daily -no recorded BP at this time Qualifiers: Hypertension type: essential hypertension Qualified Code(s): I10 - Essential (primary) hypertension (11) Dyslipidemia Current Visit: No Status: Chronic Assessment and plan: Chronic -not on home meds -check lipid profile (12) Overweight (BMI 25.0-29.9) Current Visit: No Status: Chronic Assessment and plan: BMI 28.7 -lifestyle changes (13) H/O aortic aneurysm repair Current Visit: No Status: Chronic Assessment and plan: Hx of AAA repair in 1994 (14) Benign prostate hyperplasia Current Visit: Yes Status: Acute Assessment and plan: On Flomax -continue home meds Qualifiers: Lower urinary tract symptom presence: unspecified whether lower urinary tract symptoms present Qualified Code(s): N40.0 - Benign prostatic hyperplasia without lower urinary tract symptoms - Time Spent With Patient Total time spent is greater than 50% in coordination of care (as documented) at patient's floor/unit and/or counseling patient: less than 15 minutes <Christofer Brown - Last Filed: 08/01/18 15:34> Date of Encounter: 08/01/18 Internal Medicine - H&P: HPI History of present illness: Mr. Rangel is a 78 year old male All Systems PM: A 10-system review of systems was performed and is negative for pertinent findings except as documented above in the HPI. Internal Med - H&P Results - Labs Labs: Cardiac Enzymes 08/01/18 Range/Units 13:32 Troponin I 0.07 H* (< 0.04) ng/mL - Assessment and plan (1) H/O mitral valve replacement Current Visit: No Status: Chronic (2) Hypertension Current Visit: No Status: Chronic Qualifiers: Hypertension type: essential hypertension Qualified Code(s): I10 - Essential (primary) hypertension (3) Dyslipidemia Current Visit: No Status: Chronic (4) NSTEMI (non-ST elevated myocardial infarction) Current Visit: Yes Status: Acute (5) CAD (coronary artery disease) Current Visit: No Status: Chronic Qualifiers: Coronary Disease-Associated Artery/Lesion type: [place] artery [place] vs. transplanted heart: [place] heart Associated angina: without angina Qualified Code(s): I25.10 - Atherosclerotic heart disease of [place] coronary artery without angina pectoris (6) Atrial fibrillation Current Visit: Yes Status: Chronic (7) GERD (gastroesophageal reflux disease) Current Visit: No Status: Chronic Qualifiers: Esophagitis presence: without esophagitis Qualified Code(s): K21.9 - Gastro -esophageal reflux disease without esophagitis (8) DVT prophylaxis Current Visit: Yes Status: Acute (9) Status post small bowel resection Current Visit: No Status: Chronic (10) Overweight (BMI 25.0-29.9) Current Visit: No Status: Chronic (11) H/O aortic aneurysm repair Current Visit: No Status: Chronic (12) Acute on chronic systolic (congestive) heart failure Current Visit: Yes Status: Acute (13) Pulmonary edema Current Visit: Yes Status: Acute Qualifiers: Chronicity: acute Qualified Code(s): J81.0 - Acute pulmonary edema (14) Benign prostate hyperplasia Current Visit: Yes Status: Acute Qualifiers: Lower urinary tract symptom presence: unspecified whether lower urinary tract symptoms present Qualified Code(s): N40.0 - Benign prostatic hyperplasia without lower urinary tract symptoms - Time Spent With Patient Total time spent is greater than 50% in coordination of care (as documented) at patient's floor/unit and/or counseling patient: - Attending Attestation I examined this patient and my medical decision-making was reviewed with the Resident Physician Dr. Mccauley. I agree with the documented findings, disposition and treatment plan as described except to the extent set forth below. Mr. Rangel is a 78 year old male with a PMH of a fib, arthritis, ischemic cardiomyopathy, thyroid disease, osteoporosis, PAD, HTN, GERD, HDL, chronic systolic congestive heart failure and chronic hypoxic respiratory failure on 2 lit oxygen dependent presented to [facility] emergency room with progressively worsening shortness of breath and bilateral lower extremity edema. He happened to have Afib with RVR for which patient was received digoxin x 1 dose and started on Cardizem gtt. Patient transferred to our hospital further care . His HR is in 70s now. Denied any chest pain. Still having some shortness of breath and dyspnea on exertion. Gen: A, A, O x 3 Chest: Diminished BS b/l, Crackles + Rales+ heart : S1S2+ Afib Ext: 2-3 + Pitting edema a/p 1. Acute chronic systolic CHF exacerbation 2. Acute pulmonary edema due to CHF exacerbation 3. Slightly elevated troponin due to demand ischemia admitted to tele check serial troponin strict I & D fluid restriction Lasix 40 IV TID for now 4. Chronic hypoxic respiratory failure 5. Chronic a fib - rate controlled resumed home medication metoprolol will check PT INR and resume Coumadin
--- NOTE | 2018-08-01 15:02 | Cardiology Consult Note ---
<Darin Iqbal - Last Filed: 08/01/18 15:35> Date of Encounter: 08/01/18 Time of Encounter: 15:00 Assessment and Plan (1) Acute on chronic systolic (congestive) heart failure Current Visit: Yes Status: Acute Per Cardiology: BNP noted over 3000. Chest x-ray concerning for pulmonary edema. On Lasix 40 mg IV 3 times a day per primary service. Current echo pending per primary service. Strict I&O, 1.5 L fluid restriction, daily weights. Patient reports improvement and short of breath already receiving IV Lasix. Continue diuresis. ECHO 08/2017: Impressions: LVEF 10-15%, dilated Severe global left ventricular systolic dysfunction. No pulmonary hypertension. Mitral bioprosthetic present with gradient essentially unchanged from previous echo 2015 Severely dilated atrial Small mobile mass in left ventricle seen on previous echo in 2014 consistent with chordal remnants No significant changes from previous echo Left Ventricular Wall Motion: Rest Echo Findings The apex, apical inferior, mid inferior, basal inferior, apical anterior, mid anterior, basal anterior, apical septal, mid inferior septal, basal inferior septal, apical lateral, mid anterior lateral, basal anterior lateral, mid anterior septal, mid inferior lateral, basal anterior septal and basal inferior lateral crenshaw were hypokinetic. (2) Atrial fibrillation Current Visit: Yes Status: Chronic Per Cardiology: Known history of chronic atrial fibrillation. Currently A. fib in the 60s and 70s on telemetry. Suspect A. fib with RVR due to acute on chronic CHF. Appears improved with diuresis. Not on Cardizem drip currently. Recommend resuming home medications-- on Toprol-XL 75 mg by mouth daily. Anticoagulated with Coumadin. INR currently supratherapeutic at 4.2. Target INR 2.0 - 3.0. H&H stable, denies any active bleeding or blood loss. Qualifiers: Atrial fibrillation type: chronic Qualified Code(s): I48.2 - Chronic atrial fibrillation (3) Elevated troponin Current Visit: No Status: Acute Per Cardiology: Chest pain free. History of chronic troponin elevations. Initial troponin 0.07 in setting of acute on chronic CHF and A. fib with RVR. Patient has previously declined catheterizations due to CKD stage IV and be medically managed. Patient confirms desire to continue with medical management. (4) CAD (coronary artery disease) Current Visit: No Status: Chronic Per Cardiology: Known history of CAD with CABG. Last heart catheterization August 2011 showed mid LAD 100% lesion with distal LAD and diagonal branches filling from left to left collaterals, proximal circumflex 30-40%, mid ramus 30-40%, mid RCA 95% lesions with rectal conditions consider PCI of RCA at that time. Patient has declined multiple times over the years with elevated troponins further catheterization and prefers medical management. Chest pain-free. Recommend resume home beta kathy, aspirin. Qualifiers: Coronary Disease-Associated Artery/Lesion type: [place] artery [place] vs. transplanted heart: [place] heart Associated angina: without angina Qualified Code(s): I25.10 - Atherosclerotic heart disease of [place] coronary artery without angina pectoris (5) CKD (chronic kidney disease) stage 4, GFR 15-29 ml/min Current Visit: No Status: Chronic Per Cardiology: Remains around baseline. Continue to monitor closely with IV diuresis. Consider nephrology consult for that. (6) H/O mitral valve replacement Current Visit: No Status: Chronic Per Cardiology: History of bovine tissue mitral valve replacement in 2010. Echo August 2017 showed no significant changes. Current echo pending per primary service. (7) H/O thoracic aortic aneurysm repair Current Visit: No Status: Chronic Per Cardiology: History of thoracic aortic repair in 1994. Discussion w patient/family: The assessment and plan as outlined above was discussed with the patient who expressed understanding and agreement. All questions were answered. Thank you for involving us in the care of your patient. Please call with any questions. History of Present Illness Consult date: 08/01/18 Requesting physician: Adams cMcauley Consult reason: afib, Trop Chief complaint: SOB History of present illness: Mr. Rangel is a 78 year old male with a relevant past medical history of hypertension, CAD, persistent atrial fibrillation on Coumadin for anticoagulation, hyperlipidemia, COPD, ischemic cardiomyopathy single-chamber ICD insertion September 2017 with EF 10-15% August 2017, history of mitral valve replacement with bovine tissue valve, and thoracic aortic aneurysm repair. Last seen by Dr. Vu April 2018 with cardiology. Cardiolgy consult for A. fib with RVR and mild troponin elevation. Patient reports he went to the ER for worsening shortness of breath and increased lower extremity swelling from baseline. He reports he normally utilizes oxygen needs a chem at 2 L at nighttime only. He denies any chest pain or palpitations. Denies any active bleeding or blood loss. Reports remains on Coumadin. He reports sort of breath has improved already during hospital stay with receiving IV Lasix. He denies any ICD shocks. Denies any recent infectious process. Past Med Surg Social Fam HX - Past Medical History Attestation: Yes The following information was validated with the patient. Source: patient, old records reviewed Medical history: aortic aneurysm, arthritis, atrial fibrillation, cardiomyopathy , CHF, COPD, GERD, hyperlipidemia, hypertension, kidney stones, osteoporosis, peripheral artery disease, renal disease, thyroid disease, valvular heart disease, other Additional medical history: SPINAL STENOSIS Psychiatric history: anxiety - Past Surgical History Surgical History: heart valve replacement, herniorrhaphy, vascular surgery Additional surgical history: Umbilical hernia repair. aortic anuerysm repair. mitral valve replacement - Social History Smoking Status: Never smoker Smokeless Tobacco Status: No Alcohol use: rarely Drug use: none - Family History Daughter Adopted: No Family Member Ethnicity: Non- Living Status: Still Living Hx Family Cardiac Disorders: No Hx Family Respiratory Disorders: No Hx Family Cancer: No Hx Family GI Disorders: No Hx Family Endocrine Disorder: No Hx Family Neuromuscular Disorders: No Hx Family Neurologic Disorders: No Hx Family HEENT Disorders: No Hx Family Autoimmune Disorders: No Mother Adopted: No Living Status: Hx Family Cardiac Disorders: No Hx Family Respiratory Disorders: No Hx Family Cancer: No Hx Family GI Disorders: Yes (bleeding ulcer) Hx Family Endocrine Disorder: No Hx Family Neuromuscular Disorders: No Hx Family Neurologic Disorders: No Hx Family HEENT Disorders: No Hx Family Autoimmune Disorders: No Father Adopted: No Living Status: Hx Family Cardiac Disorders: No Hx Family Respiratory Disorders: Yes (Emphysema) Hx Family Cancer: No Hx Family GI Disorders: No Hx Family Endocrine Disorder: No Hx Family Neuromuscular Disorders: No Hx Family Neurologic Disorders: No Hx Family HEENT Disorders: No Hx Family Autoimmune Disorders: No Sister Adopted: No Living Status: Hx Family Cardiac Disorders: No Hx Family Respiratory Disorders: Yes (pneumonia) Hx Family Cancer: No Hx Family GI Disorders: No Hx Family Endocrine Disorder: No Hx Family Neuromuscular Disorders: No Hx Family Neurologic Disorders: No Hx Family HEENT Disorders: No Hx Family Autoimmune Disorders: No Medications and Allergies Potassium Citrate [Urocit-K] 10 meq PO DAILY 07/23/15 [History] Tamsulosin [Flomax] 0.4 mg PO DAILY 07/23/15 [History] Montelukast [Singulair] 10 mg PO DAILY 08/16/17 [History] Aspirin Enteric Coated [Aspirin EC] 81 mg PO DAILY tablet. 08/18/17 [Rx] Metoprolol XL (24 HR) Succ [Toprol Xl] 50 mg PO DAILY 09/23/17 [History] Ipratropium/Albuterol Sulfate [Combivent Respimat Inhal [place]] 4 gm IH Q6HR PRN 11/20/17 [History] Besifloxacin HCl [Besivance] 5 ml OP BID 08/01/18 [History] Difluprednate [Durezol] 5 ml OP BID 08/01/18 [History] Finasteride [Proscar] 5 mg PO DAILY 08/01/18 [History] Oxycodone HCl [Roxybond] 5 mg PO Q4H 08/01/18 [History] 3 Allergy/AdvReac Type Severity Reaction Status Date / Time Amoxicillin Allergy Difficulty Verified 08/01/18 09:48 Breathing metronidazole [From Flagyl] Allergy Rash Verified 08/01/18 09:48 sulfamethoxazole Allergy Rash Verified 08/01/18 09:48 [From Bactrim] trimethoprim [From Bactrim] Allergy Rash Verified 08/01/18 09:48 All Systems Review: The remainder of the systems were reviewed and are negative - Constitutional Constitutional: fatigue - Cardiovascular Cardiovascular: as per HPI, dyspnea at rest, dyspnea on exertion, leg edema Physical Examination No vital signs recorded General: Conversant, No Apparent Distress HEENT: Atraumatic, Normocephaly, Mucus Membranes Moist Neck: No JVD, Normal carotid pulses Cardiac: Normal S1 and S2, No Murmur, Other (Irregularly irregular) Lungs: Normal Breath Sounds, No Wheeze, Rales, Rhonchi, Other (Diminished bilateral bases) Neuro: Alert and responsive, No focal deficits noted Abdomen: Soft, Non-Tender Skin: No rashes noted on visualized skin Musculoskeletal: No Chest Wall Tenderness Extremities: No Clubbing, No Cyanosis, Normal Pulses, Other (+2 pitting edema to bilateral lower extremities) Results Lab Results Laboratory Tests 07/22/18 07/22/18 08/01/18 01:30 01:30 10:01 WBC 11.9 H Hgb 10.7 L Hct 36.4 L Plt Count 195 INR 4.2 Potassium Creatinine 3.45 H Est GFR (Non-Af Amer) 17 L Troponin I B-Natriuretic Peptide TSH 08/01/18 08/01/18 08/01/18 10:01 10:01 10:01 WBC Hgb Hct Plt Count INR Potassium 5.3 H Creatinine 3.38 H Est GFR (Non-Af Amer) 18 L Troponin I B-Natriuretic Peptide 3007 H TSH 2.037 08/01/18 13:32 WBC Hgb Hct Plt Count INR Potassium Creatinine Est GFR (Non-Af Amer) Troponin I 0.07 H* B-Natriuretic Peptide TSH Active Medications Atorvastatin Calcium (Lipitor) 40 mg PO HS RASHID Stop: 01/31/19 21:01 Furosemide (Lasix) 40 mg IVP TIDDIURETIC RASHID Stop: 01/31/19 15:01 Naloxone HCl (Narcan) 0.4 mg IVP Q2MIN PRN PRN Reason: SEE COMMENTS Stop: 01/31/19 14:05 - Imaging and Cardiology Chest Xray: report reviewed (IMPRESSION: No significant change in bilateral pleural effusions and associated airspace disease. Findings could represent pulmonary edema or pneumonia.) Echo: pending, report reviewed Other Results: 09/2017: Single-chamber ICD insertion - EKG Interpretation EKG results cardiology: personally reviewed (afib rvr) Consult Discharge Plan - Plan Referrals: Keanu Elizabeth MD [Primary Care Provider] - < A - Last Filed: 08/01/18 17:15> Date of Encounter: 08/01/18 - Attending Attestation I have personally performed a face to face evaluation on this patient. I have reviewed and agree with the care plan. History and Exam by me shows: 78 y/o M admitted with CHF exacerbation. He has bioprosthetic mitral valve with a gradient of 7mmHg last year. Continue diuretics. Obtain echocardiogram to check mitral valve gradient. Strongly caution against the use of Cardizem in a patient with low ejection fraction and heart failure. Assessment and Plan Discussion w patient/family: The assessment and plan as outlined above was discussed with the patient and/or family members who expressed understanding and agreement. All questions were answered. Thank you for involving us in the care of your patient. Please call with any questions. History of Present Illness History of present illness: Mr. Rangel is a 78 year old male All Systems Review: The remainder of the systems were reviewed and are negative Physical Examination Vital Signs, Last 4 Hours Temp Pulse Resp BP Pulse Ox 08/01/18 16:43 97.9 F 74 18 148/88 96 Results Lab Results 08/01/18 13:32 Troponin I 0.07 H*
[2018-08-01] MEDS: Furosemide 40 MG/4 ML VIAL IVP SCH (15:41)
[2018-08-01] MEDS ORDERED: NON-FORMULARY MEDICATION 1 EACH EACH (Ipratropium/Albuterol Sulfate [Combivent Respimat In IH PRN (18:00)
[2018-08-01 18:56] LABS: INR 1.2
[2018-08-01] MEDS: *HR* OxyCODONE Immed Rel 5 MG TABLET PO SCH ×2 (20:01→20:58)
[2018-08-01] MEDS ORDERED: *HR* Phytonadione (Infant) 1 MG/0.5 ML SYRINGE IM ONE (22:48)
[2018-08-01] MEDS ORDERED: Ipratropium 1 PUFF INHALER IH PRN (23:02)
[2018-08-01] MEDS: BESIFLOXACIN OP SCH (23:09)
[2018-08-02 05:36] LABS: Basophils % 0.2 %; Eosinophils # 0.2 K/mcL (0.0-0.6); Eosinophils % 1.8 %; Hematocrit 34.9 % (37.5-50.1); Hemoglobin 10.3 g/dL (12.9-16.9); Lymphocytes # 0.6 K/mcL (0.6-4.6); Lymphocytes % 6.1 %; Mean Corpuscular HGB Conc 29.5 g/dL (31.6-35.5); Mean Corpuscular Hemoglobin 26.5 pg (28.0-33.3); Mean Corpuscular Volume 89.7 fL (83.0-100.0); Mean Platelet Volume 11.4 fL (9.4-12.4); Monocytes # 0.9 K/mcL (0.0-1.3); Monocytes % 8.8 %; Neutrophils # 8.4 K/mcL (1.6-8.9); Nucleated Red Blood Cells 0.2 /100 WBC (0); Platelet Count 161 K/mcL (140-400); Red Blood Count 3.89 M/mcL (4.19-5.50); Red Cell Distribution Width 16.7 % (11.5-14.5); Segmented Neutrophils % 82.1 %
[2018-08-02 05:37] LABS: INR 1.2; Prothrombin Time 13.7 Seconds (9.4-12.1)
[2018-08-02 05:53] LABS: Albumin 2.3 g/dL (3.5-5.7); Bilirubin,Total 0.5 mg/dL (0.3-1.0); Calcium 8.5 mg/dL (8.6-10.3); Globulin 2.4 g/dL (2.4-3.5); Magnesium 2.1 mg/dL (1.6-2.6); Potassium 5.1 mEq/L (3.5-5.1); Total Protein 4.7 g/dL (6.4-8.9)
[2018-08-02 05:54] LABS: Chol/HDL Ratio 3.5 (0-4.9)
--- NOTE | 2018-08-02 06:28 | Cardiology Progress Note ---
Date of Encounter: 08/02/18 Time of Encounter: 06:20 Assessment and Plan (1) Acute on chronic systolic (congestive) heart failure Current Visit: Yes Status: Acute Per Cardiology: BNP noted over 3000. Chest x-ray concerning for pulmonary edema. On Lasix 40 mg IV 3 times a day per primary service. Current echo pending per primary service. Strict I&O, 1.5 L fluid restriction, daily weights. Patient reports improvement and short of breath already receiving IV Lasix. Continue diuresis. Cardiology will sign off, reconsult as needed, will follow echo results, follow-up arranged. ECHO 08/2017: Impressions: LVEF 10-15%, dilated Severe global left ventricular systolic dysfunction. No pulmonary hypertension. Mitral bioprosthetic present with gradient essentially unchanged from previous echo 2015 Severely dilated atrial Small mobile mass in left ventricle seen on previous echo in 2014 consistent with chordal remnants No significant changes from previous echo Left Ventricular Wall Motion: Rest Echo Findings The apex, apical inferior, mid inferior, basal inferior, apical anterior, mid anterior, basal anterior, apical septal, mid inferior septal, basal inferior septal, apical lateral, mid anterior lateral, basal anterior lateral, mid anterior septal, mid inferior lateral, basal anterior septal and basal inferior lateral [place] were hypokinetic. (2) Atrial fibrillation Current Visit: Yes Status: Chronic Per Cardiology: Known history of chronic atrial fibrillation. Currently A. fib in the 's on telemetry. Suspect A. fib with RVR due to acute on chronic CHF. Appears improved with diuresis. On Toprol-XL 75 mg by mouth daily. Avoid calcium channel kathy. Titrate beta kathy as needed. Anticoagulated with Coumadin. INR now 1.2. Target INR 2.0 - 3.0. H&H stable, denies any active bleeding or blood loss. Qualifiers: Atrial fibrillation type: chronic Qualified Code(s): I48.2 - Chronic atrial fibrillation (3) Elevated troponin Current Visit: No Status: Acute Per Cardiology: Chest pain free. History of chronic troponin elevations. Initial troponin 0.07 in setting of acute on chronic CHF and A. fib with RVR. Patient has previously declined catheterizations due to CKD stage IV and being medically managed. Patient confirms desire to continue with medical management. Suspect type to demand ischemia in setting of acute on chronic CHF, A. fib with RVR, and CK D. No cardiac rehabilitation warranted. (4) CAD (coronary artery disease) Current Visit: No Status: Chronic Per Cardiology: Known history of CAD with CABG. Last heart catheterization August 2011 showed mid LAD 100% lesion with distal LAD and diagonal branches filling from left to left collaterals, proximal circumflex 30-40%, mid ramus 30-40%, mid RCA 95% lesions with rectal conditions consider PCI of RCA at that time. Patient has declined multiple times over the years with elevated troponins further catheterization and prefers medical management. Chest pain-free. On statin, beta kathy, aspirin. Qualifiers: Coronary Disease-Associated Artery/Lesion type: [place] artery [place] vs. transplanted heart: [place] heart Associated angina: without angina Qualified Code(s): I25.10 - Atherosclerotic heart disease of [place] coronary artery without angina pectoris (5) CKD (chronic kidney disease) stage 4, GFR 15-29 ml/min Current Visit: No Status: Chronic Per Cardiology: Remains around baseline. Continue to monitor closely with IV diuresis. Consider nephrology consult. (6) H/O mitral valve replacement Current Visit: No Status: Chronic Per Cardiology: History of bovine tissue mitral valve replacement in 2010. Echo August 2017 showed no significant changes. Current echo pending per primary service-- cardiology will sign off, will follow echo results. (7) H/O thoracic aortic aneurysm repair Current Visit: No Status: Chronic Per Cardiology: History of thoracic aortic repair in 1994. Discussion w patient/family: The assessment and plan as outlined above was discussed with the patient who expressed understanding and agreement. All questions were answered. Thank you for involving us in the care of your patient. Please call with any questions. Subjective Principal diagnosis: CHF Interval history: Denies any new concerns or complaints today. Reports short of breath has improved with IV Lasix. Denies any active bleeding or blood loss. Objective Vital Signs, Last 4 Hours Temp Pulse Resp BP Pulse Ox 08/02/18 03:44 97.7 F 86 16 121/79 92 General: Conversant, No Apparent Distress HEENT: Atraumatic, Normocephaly, Mucus Membranes Moist Neck: No JVD, Normal carotid pulses Cardiac: Normal S1 and S2, No Murmur, Other (Irregularly irregular) Lungs: Normal Breath Sounds, No Wheeze, Rales, Rhonchi Neuro: Alert and responsive, No focal deficits noted Abdomen: Soft, Non-Tender Skin: No rashes noted on visualized skin Musculoskeletal: No Chest Wall Tenderness Extremities: No Clubbing, No Cyanosis, Normal Pulses, Other (+2 pitting edema to bilateral lower extremities) Results 08/02/18 04:46 08/02/18 04:46 Lab Results Laboratory Tests 08/02/18 08/02/18 08/02/18 04:46 04:46 04:46 Hgb 10.3 L Hct 34.9 L INR 1.2 Creatinine 3.05 H Est GFR (Non-Af Amer) 20 L Active Medications Albuterol Sulfate (Albuterol Inhaler) 2 puff IH Q6H PRN PRN Reason: Shortness Of Breath Stop: 01/31/19 23:02 Aspirin (Aspirin) 81 mg PO DAILY RASHID Stop: 02/01/19 09:01 Atorvastatin Calcium (Lipitor) 40 mg PO HS RASHID Stop: 01/31/19 21:01 Last Admin: 08/01/18 20:10 Dose: 40 mg Finasteride (Proscar) 5 mg PO DAILY RASHID PRN Reason: Protocol Stop: 02/01/19 09:01 Furosemide (Lasix) 40 mg IVP TIDDIURETIC RASHID Stop: 01/31/19 15:01 Last Admin: 08/01/18 15:41 Dose: 40 mg Ipratropium [place] (Atrovent Inhaler) 2 puff IH Q6H PRN PRN Reason: Shortness Of Breath Stop: 01/31/19 23:03 Metoprolol Succinate (Toprol Xl) 75 mg PO DAILY RASHID Stop: 02/01/19 09:01 Metoprolol Succinate (Toprol Xl) 50 mg PO DAILY RASHID Stop: 02/01/19 09:01 Montelukast Sodium (Singulair) 10 mg PO DAILY RASHID Stop: 02/01/19 09:01 Naloxone HCl (Narcan) 0.4 mg IVP Q2MIN PRN PRN Reason: SEE COMMENTS Stop: 01/31/19 14:05 Oxycodone HCl (Roxicodone) 5 mg PO Q4H PRN PRN Reason: mild to moderate pain Stop: 01/31/19 18:01 Pharmacy Profile Note (Patient Taking Own Medication) 1 each OP BID RASHID Stop: 01/31/19 23:01 Last Admin: 08/01/18 23:09 Dose: Not Given Pharmacy Profile Note (Patient Taking Own Medication) 1 each OP BID RASHID Stop: 01/31/19 23:01 Last Admin: 08/01/18 23:09 Dose: Not Given Tamsulosin HCl (Flomax) 0.4 mg PO DAILY RASHID PRN Reason: Protocol Stop: 02/01/19 09:01 - Imaging and Cardiology Echo: pending - EKG Interpretation EKG results cardiology: other (Telemetry shows average heart rate past 12 hours 82, atrial fibrillation, currently A. fib in the 80s) Consult Discharge Plan - Plan Referrals: Keanu Elizabeth MD [Primary Care Provider] -
[2018-08-02] MEDS: Finasteride 5 MG TABLET PO SCH (08:06)
[2018-08-02] MEDS: Furosemide 40 MG/4 ML VIAL IVP SCH ×2 (08:06→17:05)
[2018-08-02] MEDS: *HR* OxyCODONE Immed Rel 5 MG TABLET PO PRN ×4 (08:06→21:09)
[2018-08-02] MEDS: Aspirin 81 MG TAB.CHEW PO SCH (08:06)
[2018-08-02] MEDS: Metoprolol XL (24 HR) Succ 50 MG TAB.ER.24H PO SCH (08:07)
[2018-08-02] MEDS: BESIFLOXACIN OP SCH ×2 (08:08→20:02)
[2018-08-02] MEDS ORDERED: Aspirin Enteric Coated 81 MG Tablet PO SCH (09:00)
[2018-08-02] MEDS ORDERED: Metoprolol XL (24 HR) Succ 25 MG TAB.ER.24H PO SCH (09:00)
--- NOTE | 2018-08-02 12:21 | Internal Med Progress Note ---
Hospitalist Progress Note - Encounter Date of Encounter: 08/02/18 Time of Encounter: 12:19 - Subjective Interval History: Mr. Rangel is a 78 year old male with a PMH of a fib, arthritis, ischemic cardiomyopathy, thyroid disease, osteoporosis, PAD, HTN, GERD, HDL, chronic systolic congestive heart failure and chronic hypoxic respiratory failure on 2 lit oxygen dependent presented to [facility] emergency room with progressively worsening shortness of breath and bilateral lower extremity edema. He happened to have Afib with RVR for which patient was received digoxin x 1 dose and started on Cardizem gtt. Patient transferred to our hospital for further care . His HR is in 70s now. Patient was admitted in the hospital and started him on IV Lasix. Today he is feeling little better. Shortness of breath also better. Still having some dyspnea on exertion. Denied any chest pain - Exam Vitals: Temp Pulse Resp BP Pulse Ox 98.0 F 72 16 126/87 99 08/02/18 10:58 08/02/18 10:58 08/02/18 10:58 08/02/18 10:58 08/02/18 10:58 Exam: Gen: Alert, awake, Oriented to time,place and person Chest: Diminished breath sounds B/L, mild wheezing, crackles + Rales + Heart: S1S2+ afib, No murmurs Abd: Soft, NT, BS +, No organomegaly Ext: 2+ edema.. , pulses are palpable, No calf tenderness Neuro : Benign findings Skin: No rash. - Assessment and Plan (1) Acute on chronic systolic (congestive) heart failure Current Visit: Yes Status: Acute Assessment and Plan: Pt presented with acute exacerbation of CHF Last ECHO in 08/2017 showed LVEF 10-15%, severe systolic dysfxn reviewed Echo today which showed worsening EF at 6 to 10%, with the severe diastolic dysfunction overall very poor prognosis counseled the patient about discussing with the primary care doctor as well as his all source intelligence technician about comfort care options continue Lasix 40 mg IV b.i.d. for now continue aspirin, beta kahty and Statin medically stable to transfer to regular tele floor (2) Pulmonary edema Current Visit: Yes Status: Acute Assessment and Plan: Due to CHF exacerbation Improving (3) CAD (coronary artery disease) Current Visit: No Status: Chronic Assessment and Plan: On ASA 81mg PO daily, Toprol 50mg PO daily (4) H/O mitral valve replacement Current Visit: No Status: Chronic Assessment and Plan: s/p MV replacement in 2010 (5) Hypertension Current Visit: No Status: Chronic Assessment and Plan: Stable with home medications metoprolol and Lasix (6) Dyslipidemia Current Visit: No Status: Chronic Assessment and Plan: Reviewed his lipid profile LDL 54 (7) NSTEMI (non-ST elevated myocardial infarction) Current Visit: Yes Status: Acute Assessment and Plan: Slightly elevated troponin due to systolic heart failure exacerbation he does have chronically elevated troponin no further workup needed (8) Atrial fibrillation Current Visit: Yes Status: Chronic Assessment and Plan: Rate controlled with metoprolol on Coumadin for anticoagulation INR still sub therapeutic 1.2 will give extra dose of Coumadin today (9) GERD (gastroesophageal reflux disease) Current Visit: No Status: Chronic Assessment and Plan: on PPI (10) DVT prophylaxis Current Visit: Yes Status: Acute Assessment and Plan: On Coumadin (11) Status post small bowel resection Current Visit: No Status: Chronic Assessment and Plan: s/p SBO and bowel resection, 4 days - denies any N/V - tolerating diet - no pain - incision is clean and dry, intact (12) Overweight (BMI 25.0-29.9) Current Visit: No Status: Chronic Assessment and Plan: BMI 28.7 -lifestyle changes (13) H/O aortic aneurysm repair Current Visit: No Status: Chronic Assessment and Plan: Hx of AAA repair in 1994 (14) Benign prostate hyperplasia Current Visit: Yes Status: Acute Assessment and Plan: On Flomax -continue home meds (15) CKD (chronic kidney disease) stage 3, GFR 30-59 ml/min Current Visit: Yes Status: Acute Assessment and Plan: Stable creatinine (16) Chronic respiratory failure with hypoxia Current Visit: Yes Status: Acute Assessment and Plan: Stable and at baseline now Neb treatments as needed - Time Spent with Patient Total time spent is greater than 50% in coordination of care (as documented) at patient's floor/unit and/or counseling patient: Internal Medicine: Result - Labs CBC & Chem 7: 08/02/18 04:46 08/02/18 04:46 Labs: Short CBC 08/02/18 Range/Units 04:46 WBC 10.3 (4.3-11.1) K/mcL Hgb 10.3 L (12.9-16.9) g/dL Hct 34.9 L (37.5-50.1) % Plt Count 161 (140-400) K/mcL Neutrophils # 8.4 (1.6-8.9) K/mcL BMP 08/02/18 04:46 Sodium 141 Potassium 5.1 Chloride 110 H Carbon Dioxide 25 BUN 66 H Creatinine 3.05 H Glucose 92 Calcium 8.5 L Cardiac Enzymes 08/01/18 Range/Units 13:32 Troponin I 0.07 H* (< 0.04) ng/mL Liver Function 08/02/18 Range/Units 04:46 Total Bilirubin 0.5 (0.3-1.0) mg/dL AST 12 L (13-39) Units/L ALT 12 (7-52) Units/L Alkaline Phosphatase 69 (34-104) Units/L Albumin 2.3 L (3.5-5.7) g/dL - ABG Interpretation ABG results: PT/INR, D-dimer PT 13.7 Seconds (9.4-12.1) H 08/02/18 04:46 - Impressions Impressions Echocardiogram 08/02/18 14:43 Impressions: Technically adequate exam. LVEF 6-10%. Severe left ventricular diastolic dysfunction. Moderately dilated right ventricle. Severely dilated left atrium. Bioprosthetic abnormal functioning with moderate stenosis. Gradient of 9mmHg Estimated PASP of 46mmHg pulmonary hypertension. A device lead was visualized in the right atrium and right ventricle. Left Ventricular Wall Motion: Rest Echo Findings All wall segments showed normal motion. Findings: Study Quality * Technically adequate exam. ECG Findings * Atrial fibrillation. Left Ventricle * LVEF 6-10%. * Severe left ventricular diastolic dysfunction. Right Ventricle * Moderately dilated right ventricle. Left Atrium * Severely dilated left atrium. Right Atrium * Severely dilated right atrium. Interatrial Septum * No evidence of PFO by color Doppler. Aortic Valve * Trileaflet aortic valve. Mitral Valve * Bioprosthetic abnormal functioning with moderate stenosis. * Gradient of 9mmHg * Trace mitral regurgitation. * Mildly calcified mitral valve leaflets. Tricuspid Valve * Mild tricuspid regurgitation. * Estimated RVSP is 36 mmHg. * Estimated RA pressure is 10 mmHg. * Estimated PASP of 46mmHg pulmonary hypertension. Pulmonic Valve * Mild pulmonic regurgitation. Device lead * A device lead was visualized in the right atrium and right ventricle. Pericardium * The pericardium appears normal. Aorta * Normally sized aortic root. IVC * The IVC is not well evaluated. Consult Discharge Plan - Plan Referrals: Keanu Elizabeth MD [Primary Care Provider] - (2) Pulmonary edema Qualifiers: Chronicity: acute Qualified Code(s): J81.0 - Acute pulmonary edema (3) CAD (coronary artery disease) Qualifiers: Coronary Disease-Associated Artery/Lesion type: [place] artery [place] vs. transplanted heart: [place] heart Associated angina: without angina Qualified Code(s): I25.10 - Atherosclerotic heart disease of [place] coronary artery without angina pectoris (5) Hypertension Qualifiers: Hypertension type: essential hypertension Qualified Code(s): I10 - Essential (primary) hypertension (9) GERD (gastroesophageal reflux disease) Qualifiers: Esophagitis presence: without esophagitis Qualified Code(s): K21.9 - Gastro- esophageal reflux disease without esophagitis (14) Benign prostate hyperplasia Qualifiers: Lower urinary tract symptom presence: unspecified whether lower urinary tract symptoms present Qualified Code(s): N40.0 - Benign prostatic hyperplasia without lower urinary tract symptoms
[2018-08-02] MEDS ORDERED: Warfarin perPT PO PRN (18:00)
[2018-08-02] MEDS ORDERED: *HR* Warfarin 3 MG TABLET PO ONE (18:00)
[2018-08-02] MEDS ORDERED: Simethicone 80 MG TAB.CHEW PO PRN (21:56)
[2018-08-03 05:04] LABS: INR 1.3; Prothrombin Time 14.5 Seconds (9.4-12.1)
[2018-08-03 05:21] LABS: Calcium 8.3 mg/dL (8.6-10.3); Potassium 4.8 mEq/L (3.5-5.1)
[2018-08-03] MEDS: Aspirin 81 MG TAB.CHEW PO SCH (07:55)
[2018-08-03] MEDS: BESIFLOXACIN OP SCH ×2 (07:56→20:37)
[2018-08-03] MEDS: Finasteride 5 MG TABLET PO SCH (07:56)
[2018-08-03] MEDS: Metoprolol XL (24 HR) Succ 50 MG TAB.ER.24H PO SCH (07:56)
[2018-08-03] MEDS: *HR* OxyCODONE Immed Rel 5 MG TABLET PO PRN ×3 (07:56→17:08)
[2018-08-03] MEDS: Furosemide 40 MG/4 ML VIAL IVP SCH ×2 (07:57→17:08)
--- NOTE | 2018-08-03 09:54 | Internal Med Progress Note ---
Hospitalist Progress Note - Encounter Date of Encounter: 08/03/18 Time of Encounter: 09:52 - Subjective Interval History: Mr. Rangel is a 78 year old male with a PMH of a fib, arthritis, ischemic cardiomyopathy, thyroid disease, osteoporosis, PAD, HTN, GERD, HDL, chronic systolic congestive heart failure and chronic hypoxic respiratory failure on 2 lit oxygen dependent presented to [place] emergency room with progressively worsening shortness of breath and bilateral lower extremity edema. He happened to have Afib with RVR for which patient was received digoxin x 1 dose and started on Cardizem gtt. Patient transferred to our hospital for further care . His HR is in 70s now. Patient was admitted in the hospital and started him on IV Lasix. Today he is feeling little better. Shortness of breath also better. Still having some dyspnea on exertion and diffuse swelling in both legs. Denied any chest pain - Exam Vitals: Temp Pulse Resp BP Pulse Ox 97.7 F 76 17 110/67 98 08/03/18 07:32 08/03/18 07:32 08/03/18 07:32 08/03/18 07:32 08/03/18 07:32 Exam: Gen: Alert, awake, Oriented to time,place and person Chest: Diminished breath sounds B/L, mild wheezing, crackles + Rales + Heart: S1S2+ afib, No murmurs Abd: Soft, NT, BS +, No organomegaly..Clean incision Ext: 2+ edema.. , pulses are palpable, No calf tenderness Neuro : Benign findings Skin: No rash. - Assessment and Plan (1) Acute on chronic systolic (congestive) heart failure Current Visit: Yes Status: Acute Assessment and Plan: Pt presented with acute exacerbation of CHF Last ECHO in 08/2017 showed LVEF 10-15%, severe systolic dysfunction reviewed Echo today which showed worsening EF at 6 to 10%, with the severe diastolic dysfunction overall very poor prognosis counseled the patient about discussing with the primary care doctor as well as his access services librarian about comfort care options continue Lasix 40 mg IV b.i.d. for now continue aspirin, beta kathy and Statin (2) Pulmonary edema Current Visit: Yes Status: Acute Assessment and Plan: Due to CHF exacerbation Improving (3) CAD (coronary artery disease) Current Visit: No Status: Chronic Assessment and Plan: On ASA 81mg PO daily, Toprol 50mg PO daily (4) H/O mitral valve replacement Current Visit: No Status: Chronic Assessment and Plan: s/p MV replacement in 2010 (5) Hypertension Current Visit: No Status: Chronic Assessment and Plan: Stable with home medications metoprolol and Lasix (6) Dyslipidemia Current Visit: No Status: Chronic Assessment and Plan: Reviewed his lipid profile LDL 54 started on statin (7) NSTEMI (non-ST elevated myocardial infarction) Current Visit: Yes Status: Acute Assessment and Plan: Slightly elevated troponin due to systolic heart failure exacerbation he does have chronically elevated troponin no further workup needed (8) Atrial fibrillation Current Visit: Yes Status: Chronic Assessment and Plan: Rate controlled with metoprolol on Coumadin for anticoagulation INR still sub therapeutic 1.2 will give extra dose of Coumadin today (9) GERD (gastroesophageal reflux disease) Current Visit: No Status: Chronic Assessment and Plan: on PPI (10) Status post small bowel resection Current Visit: No Status: Chronic Assessment and Plan: s/p SBO and bowel resection, 4 days - denies any N/V - tolerating diet - no pain - incision is clean and dry, intact (11) Chronic respiratory failure with hypoxia Current Visit: Yes Status: Acute Assessment and Plan: Stable and at baseline now Neb treatments as needed (12) CKD (chronic kidney disease) stage 4, GFR 15-29 ml/min Current Visit: Yes Status: Acute Assessment and Plan: Stable Cr (13) Benign prostate hyperplasia Current Visit: Yes Status: Acute Assessment and Plan: On Flomax -continue home meds (14) DVT prophylaxis Current Visit: Yes Status: Acute Assessment and Plan: On Coumadin - Time Spent with Patient Total time spent is greater than 50% in coordination of care (as documented) at patient's floor/unit and/or counseling patient: Internal Medicine: Result - Labs CBC & Chem 7: 08/02/18 04:46 08/03/18 04:47 Labs: BMP 08/03/18 04:47 Sodium 142 Potassium 4.8 Chloride 110 H Carbon Dioxide 29 BUN 61 H Creatinine 2.87 H Glucose 86 Calcium 8.3 L - ABG Interpretation ABG results: PT/INR, D-dimer PT 14.5 Seconds (9.4-12.1) H 08/03/18 04:47 - Impressions Impressions Echocardiogram 08/02/18 14:43 Impressions: Technically adequate exam. LVEF 6-10%. Severe left ventricular diastolic dysfunction. Moderately dilated right ventricle. Severely dilated left atrium. Bioprosthetic abnormal functioning with moderate stenosis. Gradient of 9mmHg Estimated PASP of 46mmHg pulmonary hypertension. A device lead was visualized in the right atrium and right ventricle. Left Ventricular Wall Motion: Rest Echo Findings All wall segments showed normal motion. Findings: Study Quality * Technically adequate exam. ECG Findings * Atrial fibrillation. Left Ventricle * LVEF 6-10%. * Severe left ventricular diastolic dysfunction. Right Ventricle * Moderately dilated right ventricle. Left Atrium * Severely dilated left atrium. Right Atrium * Severely dilated right atrium. Interatrial Septum * No evidence of PFO by color Doppler. Aortic Valve * Trileaflet aortic valve. Mitral Valve * Bioprosthetic abnormal functioning with moderate stenosis. * Gradient of 9mmHg * Trace mitral regurgitation. * Mildly calcified mitral valve leaflets. Tricuspid Valve * Mild tricuspid regurgitation. * Estimated RVSP is 36 mmHg. * Estimated RA pressure is 10 mmHg. * Estimated PASP of 46mmHg pulmonary hypertension. Pulmonic Valve * Mild pulmonic regurgitation. Device lead * A device lead was visualized in the right atrium and right ventricle. Pericardium * The pericardium appears normal. Aorta * Normally sized aortic root. IVC * The IVC is not well evaluated. Consult Discharge Plan - Plan Referrals: Keanu Elizabeth MD [Primary Care Provider] - (2) Pulmonary edema Qualifiers: Chronicity: acute Qualified Code(s): J81.0 - Acute pulmonary edema (3) CAD (coronary artery disease) Qualifiers: Coronary Disease-Associated Artery/Lesion type: [place] artery [place] vs. transplanted heart: [place] heart Associated angina: without angina Qualified Code(s): I25.10 - Atherosclerotic heart disease of [place] coronary artery without angina pectoris (5) Hypertension Qualifiers: Hypertension type: essential hypertension Qualified Code(s): I10 - Essential (primary) hypertension (9) GERD (gastroesophageal reflux disease) Qualifiers: Esophagitis presence: without esophagitis Qualified Code(s): K21.9 - Gastro- esophageal reflux disease without esophagitis (13) Benign prostate hyperplasia Qualifiers: Lower urinary tract symptom presence: unspecified whether lower urinary tract symptoms present Qualified Code(s): N40.0 - Benign prostatic hyperplasia without lower urinary tract symptoms
[2018-08-03] MEDS ORDERED: *HR* Warfarin 5 MG TABLET PO ONE (18:00)
[2018-08-04 05:22] LABS: INR 1.8; Prothrombin Time 20.3 Seconds (9.4-12.1)
[2018-08-04] MEDS: Aspirin 81 MG TAB.CHEW PO SCH (07:53)
[2018-08-04] MEDS: BESIFLOXACIN OP SCH (07:54)
[2018-08-04] MEDS: Finasteride 5 MG TABLET PO SCH (07:54)
[2018-08-04] MEDS: Furosemide 40 MG/4 ML VIAL IVP SCH ×2 (07:54→17:24)
[2018-08-04] MEDS: Metoprolol XL (24 HR) Succ 50 MG TAB.ER.24H PO SCH (07:54)
[2018-08-04 09:25] LABS: Calcium 8.3 mg/dL (8.6-10.3); Magnesium 1.9 mg/dL (1.6-2.6); Potassium 4.6 mEq/L (3.5-5.1)
--- NOTE | 2018-08-04 10:26 | Discharge Summary ---
- NOTES TO OUTPATIENT PROVIDER Notes to Outpatient Provider: f/u with PCP in one week. f/u with Cardiology in 1-2 weeks. Cont Lasix 80mg PO BID. Added new medication ( water pill ) Aldactone 25mg PO Daily. Please check your weaight daily, if yoy gain more than 2 lbs, please take an extra dose of Lasix. Orders not resulted at time of discharge: Pending orders 08/05/18 04:00 INR/PT [Prothrombin Time INR] [COAG] AM 0400 08/06/18 04:00 INR/PT [Prothrombin Time INR] [COAG] AM 040 Date of Encounter: 08/04/18 Time of Encounter: 10:24 - Discharge Diagnosis (1) Acute on chronic systolic (congestive) heart failure Priority: Primary Status: Acute (2) Pulmonary edema Priority: Primary Status: Acute Qualifiers: Chronicity: acute Qualified Code(s): J81.0 - Acute pulmonary edema (3) CAD (coronary artery disease) Priority: Secondary Status: Chronic Qualifiers: Coronary Disease-Associated Artery/Lesion type: [place] artery [place] vs. transplanted heart: [place] heart Associated angina: without angina Qualified Code(s): I25.10 - Atherosclerotic heart disease of [place] coronary artery without angina pectoris (4) H/O mitral valve replacement Priority: Secondary Status: Chronic (5) Hypertension Priority: Secondary Status: Chronic Qualifiers: Hypertension type: essential hypertension Qualified Code(s): I10 - Essential (primary) hypertension (6) Dyslipidemia Priority: Secondary Status: Chronic (7) NSTEMI (non-ST elevated myocardial infarction) Priority: Secondary Status: Acute (8) Atrial fibrillation Priority: Secondary Status: Chronic (9) GERD (gastroesophageal reflux disease) Priority: Secondary Status: Chronic Qualifiers: Esophagitis presence: without esophagitis Qualified Code(s): K21.9 - Gastro -esophageal reflux disease without esophagitis (10) Status post small bowel resection Priority: Secondary Status: Chronic (11) Chronic respiratory failure with hypoxia Priority: Secondary Status: Acute (12) CKD (chronic kidney disease) stage 4, GFR 15-29 ml/min Priority: Secondary Status: Acute (13) Benign prostate hyperplasia Priority: Secondary Status: Acute Qualifiers: Lower urinary tract symptom presence: unspecified whether lower urinary tract symptoms present Qualified Code(s): N40.0 - Benign prostatic hyperplasia without lower urinary tract symptoms (14) DVT prophylaxis Priority: Secondary Status: Acute Hospital course: Mr. Rangel is a 78 year old male with a PMH of a fib, arthritis, ischemic cardiomyopathy, thyroid disease, osteoporosis, PAD, HTN, GERD, HDL, chronic systolic congestive heart failure and chronic hypoxic respiratory failure on 2 lit oxygen dependent presented to [place] emergency room with progressively worsening shortness of breath and bilateral lower extremity edema. He happened to have Afib with RVR for which patient was received digoxin x 1 dose and started on Cardizem gtt. Patient transferred to our hospital for further care . His HR is in 70s now. Patient was admitted in the hospital and started him on aggressive diuresis with IV Lasix 40mg TID. He lost 5kg weight. His b/l LE swelling also little better, however he still has 2+ pitting edema. His 2D Echo showed worsening EF at 6 to 10%, with the severe systolic and diastolic dysfunction. Overall very poor prognosis. Counseled and encouraged the patient to discuss with the primary care doctor as well as his pipe blanks cut off saw operator about comfort care options. Will d/c him back to [facility] with PO Lasix and Aldactone today. - Time Spent with Patient Total time spent providing and/or coordinating discharge services: - Discharge Medications Prescriptions: Furosemide [Lasix] 40 mg PO BID #60 tablet Spironolactone [Aldactone] 25 mg PO DAILY #30 tablet Home Medications: Montelukast [Singulair] 10 mg PO DAILY 08/16/17 [History] Aspirin Enteric Coated [Aspirin EC] 81 mg PO DAILY tablet. 08/18/17 [Rx] Metoprolol XL (24 HR) Succ [Toprol Xl] 50 mg PO DAILY 09/23/17 [History] Ipratropium/Albuterol Sulfate [Combivent Respimat Inhal [place]] 4 gm IH Q6HR PRN 11/20/17 [History] Besifloxacin HCl [Besivance] 5 ml OP BID 08/01/18 [History] Difluprednate [Durezol] 5 ml OP BID 08/01/18 [History] Finasteride [Proscar] 5 mg PO DAILY 08/01/18 [History] Potassium Citrate [Urocit-K] 10 meq PO BID 08/02/18 [History] Tamsulosin [Flomax] 0.4 mg PO DAILY 08/02/18 [History] Atorvastatin [Lipitor] 40 mg PO HS tablet 08/04/18 [Rx] Furosemide [Lasix] 80 mg PO BID #60 tablet 08/04/18 [Rx] Spironolactone [Aldactone] 25 mg PO DAILY #30 tablet 08/04/18 [Rx] Warfarin [Coumadin] 3 mg PO DAILY #0 08/04/18 [Rx] Allergies/Adverse Reactions: 3 Allergy/AdvReac Type Severity Reaction Status Date / Time Amoxicillin Allergy Difficulty Verified 08/01/18 09:48 Breathing metronidazole [From Flagyl] Allergy Rash Verified 08/01/18 09:48 sulfamethoxazole Allergy Rash Verified 08/01/18 09:48 [From Bactrim] trimethoprim [From Bactrim] Allergy Rash Verified 08/01/18 09:48 Date of admission: 08/01/18 14:12 Primary care physician: Keanu Elizabeth Consults: 08/01/18 13:16 Consult to Diesel Tractor Engine Mechanic [CONS] Routine Reason for SW Consult: From [facility] 08/01/18 14:06 Consult to Occupational Therapy [CONS] Routine Comment: Evaluate, develop and implement POC Reason for Consult: ptot eval Does patient have active BEDREST order?: No Is patient medically & hemodynamically stable?: Yes Patient assessed for mobility or mobilized this visit?: No Consult to Physical Therapy [CONS] Routine Comment: Evaluate, develop and implement POC Reason for Consult: ptot eval Does patient have active BEDREST order?: No Is patient medically & hemodynamically stable?: Yes Patient assessed for mobility or mobilized this visit?: No 08/01/18 14:34 Consult to Cardiology [CONS] Routine Comment: Consulting Provider: Cardiology [facility] Reason for Consult: A fib rvr, ef 10-15% Call Completed: Yes - Constitutional Vitals: Temp Pulse Resp BP Pulse Ox 97.9 F 85 18 104/58 95 08/04/18 06:42 08/04/18 07:00 08/04/18 06:42 08/04/18 06:42 08/04/18 06:42 General appearance: Present: cooperative, A&O X 3, pleasant Exam: Gen: Alert, awake, Oriented to time,place and person Chest: Diminished breath sounds B/L, mild wheezing, crackles + Rales + Heart: S1S2+ afib, No murmurs Abd: Soft, NT, BS +, No organomegaly..Clean incision Ext: 2+ edema.. , pulses are palpable, No calf tenderness Neuro : Benign findings Skin: No rash. - Patient Status Disposition: Transfer SNF Condition: Fair Overall status at discharge: patient is back to baseline - Discharge Instructions Follow Up With: Keanu Elizabeth MD [Primary Care Provider] - 08/11/18 10:15 am - Diet and Activity Activity: increase activity as tolerated Diet: low salt diet
--- NOTE | 2018-08-04 10:37 | Physician Discharge Referral ---
ExtendedCare Referral Info Provider in Charge after Transfer: PCP Institutional Level of Care: Skilled - Diagnosis (1) Acute on chronic systolic (congestive) heart failure Status: Acute (2) Pulmonary edema Status: Acute (3) CAD (coronary artery disease) Status: Chronic (4) H/O mitral valve replacement Status: Chronic (5) Hypertension Status: Chronic (6) Dyslipidemia Status: Chronic (7) NSTEMI (non-ST elevated myocardial infarction) Status: Acute (8) Atrial fibrillation Status: Chronic (9) GERD (gastroesophageal reflux disease) Status: Chronic (10) Status post small bowel resection Status: Chronic (11) Chronic respiratory failure with hypoxia Status: Acute (12) CKD (chronic kidney disease) stage 4, GFR 15-29 ml/min Status: Acute (13) Benign prostate hyperplasia Status: Acute (14) DVT prophylaxis Status: Acute - Transfer Medications Prescriptions: Furosemide [Lasix] 80 mg PO BID #60 tablet Spironolactone [Aldactone] 25 mg PO DAILY #30 tablet Home Medications: Montelukast [Singulair] 10 mg PO DAILY 08/16/17 [History] Aspirin Enteric Coated [Aspirin EC] 81 mg PO DAILY tablet. 08/18/17 [Rx] Metoprolol XL (24 HR) Succ [Toprol Xl] 50 mg PO DAILY 09/23/17 [History] Ipratropium/Albuterol Sulfate [Combivent Respimat Inhal [place]] 4 gm IH Q6HR PRN 11/20/17 [History] Besifloxacin HCl [Besivance] 5 ml OP BID 08/01/18 [History] Difluprednate [Durezol] 5 ml OP BID 08/01/18 [History] Finasteride [Proscar] 5 mg PO DAILY 08/01/18 [History] Potassium Citrate [Urocit-K] 10 meq PO BID 08/02/18 [History] Tamsulosin [Flomax] 0.4 mg PO DAILY 08/02/18 [History] Atorvastatin [Lipitor] 40 mg PO HS tablet 08/04/18 [Rx] Furosemide [Lasix] 80 mg PO BID #60 tablet 08/04/18 [Rx] Spironolactone [Aldactone] 25 mg PO DAILY #30 tablet 08/04/18 [Rx] Warfarin [Coumadin] 3 mg PO DAILY #0 08/04/18 [Rx] Allergies/Adverse Reactions: 3 Allergy/AdvReac Type Severity Reaction Status Date / Time Amoxicillin Allergy Difficulty Verified 08/01/18 09:48 Breathing metronidazole [From Flagyl] Allergy Rash Verified 08/01/18 09:48 sulfamethoxazole Allergy Rash Verified 08/01/18 09:48 [From Bactrim] trimethoprim [From Bactrim] Allergy Rash Verified 08/01/18 09:48 - Respiratory Orders Smoking Cessation: Smoking cessation has been advised. For more information, call the [place] [employer] Quit Line at 4-919-ZORM-NOW. - Lab Orders Lab Orders: Other (include drug levels w/frequency) (BMP in 5 days) - Diet Orders Cardiac CERTIFICATION: I certify that the transfer of the above named patient to an Extended Care Facility is necessary for the continuing treatment of the diagnosis listed. The above information is true and accurate reflection of patient's current condition. Confidential - Redisclosure prohibited without a patient's written consent.
[2018-08-04 16:38] VITALS: BP 108/79
[2018-08-04] MEDS ORDERED: *HR* Warfarin 5 MG TABLET PO ONE (18:00)
== END 2018-08-04 18:25 | DRG 280 ==
LOC: 2NNU → SUATTDRO 14:12
PROVIDERS: ADMIT Internal Medicine; ATTEND Family Medicine

== ENCOUNTER 2018-08-19 09:56 | Inpatient (IN) ==
[2018-08-19] MEDS ORDERED: Furosemide 80 MG in 0.9 % Sodium Chloride 50 ML IVPB ONE (14:24)
[2018-08-19] MEDS ORDERED: Naloxone 0.4 MG/ML INJ IVP PRN (15:11)
--- NOTE | 2018-08-19 15:18 | Internal Med History&Physical ---
Date of Encounter: 08/19/18 Time of Encounter: 14:00 Internal Medicine - H&P: HPI Chief complaint: Shortness of breath Admitted From: Home History of present illness: Patient is a 78-year-old male with past medical history significant for ischemic cardiomyopathy with a LVEF of 6-10% status post ICD implant 2017 and CK -MB stage IV with chronic anemia who presents from [facility] as a direct admit due to elevated troponins, A. fib with RVR and acute on chronic systolic heart failure. Patient reports that the midnight prior to admission he noticed flutters in his chest and became short of breath. [facility] facility found that patient had elevated heart rate of 145 in addition to elevated troponins and patient was sent to [place] [facility] for further evaluation. At [place] [facility], patient was found to be age of fibrillation with RVR and elevated troponin of 0.43. Patient was transferred to [facility] as a direct admit for further evaluation. Review the patients labs in the EMR revealed the patient had a BNP of 3007 with elevated troponin of 0.41 to 0.68 and now 0.81. Chest x-ray also revealed vascular congestion. Cardiology has been consulted for further recommendations. Past Med Surg Social Fam HX - Past Medical History Medical history: aortic aneurysm, arthritis, atrial fibrillation, cardiomyopathy , CHF, COPD, GERD, hyperlipidemia, hypertension, kidney stones, osteoporosis, peripheral artery disease, renal disease, thyroid disease, valvular heart disease, other Additional medical history: SPINAL STENOSIS Psychiatric history: anxiety - Past Surgical History Surgical History: heart valve replacement, herniorrhaphy, vascular surgery Additional surgical history: Umbilical hernia repair. aortic anuerysm repair. mitral valve replacement - Social History Smoking Status: Never smoker Smokeless Tobacco Status: No Alcohol use: rarely Drug use: none - Family History Daughter Adopted: No Family Member Ethnicity: Non- Living Status: Still Living Hx Family Cardiac Disorders: No Hx Family Respiratory Disorders: No Hx Family Cancer: No Hx Family GI Disorders: No Hx Family Endocrine Disorder: No Hx Family Neuromuscular Disorders: No Hx Family Neurologic Disorders: No Hx Family HEENT Disorders: No Hx Family Autoimmune Disorders: No Mother Adopted: No Living Status: Hx Family Cardiac Disorders: No Hx Family Respiratory Disorders: No Hx Family Cancer: No Hx Family GI Disorders: Yes (bleeding ulcer) Hx Family Endocrine Disorder: No Hx Family Neuromuscular Disorders: No Hx Family Neurologic Disorders: No Hx Family HEENT Disorders: No Hx Family Autoimmune Disorders: No Father Adopted: No Living Status: Hx Family Cardiac Disorders: No Hx Family Respiratory Disorders: Yes (Emphysema) Hx Family Cancer: No Hx Family GI Disorders: No Hx Family Endocrine Disorder: No Hx Family Neuromuscular Disorders: No Hx Family Neurologic Disorders: No Hx Family HEENT Disorders: No Hx Family Autoimmune Disorders: No Sister Adopted: No Living Status: Hx Family Cardiac Disorders: No Hx Family Respiratory Disorders: Yes (pneumonia) Hx Family Cancer: No Hx Family GI Disorders: No Hx Family Endocrine Disorder: No Hx Family Neuromuscular Disorders: No Hx Family Neurologic Disorders: No Hx Family HEENT Disorders: No Hx Family Autoimmune Disorders: No Internal Medicine - H&P: Meds Montelukast [Singulair] 10 mg PO HS 08/16/17 [History] Aspirin Enteric Coated [Aspirin EC] 81 mg PO DAILY tablet. 08/18/17 [Rx] Metoprolol XL (24 HR) Succ [Toprol Xl] 50 mg PO DAILY 09/23/17 [History] Ipratropium/Albuterol Sulfate [Combivent Respimat Inhal [place]] 4 gm IH Q6HR PRN 11/20/17 [History] Difluprednate [Durezol] 1 drop RIGHT EYE DAILY 08/01/18 [History] Finasteride [Proscar] 5 mg PO DAILY 08/01/18 [History] Potassium Citrate [Urocit-K] 10 meq PO BID 08/02/18 [History] Tamsulosin [Flomax] 0.4 mg PO DAILY 08/02/18 [History] Atorvastatin [Lipitor] 40 mg PO HS tablet 08/04/18 [Rx] Warfarin [Coumadin] 3 mg PO DAILY #0 08/04/18 [Rx] Bromfenac Sodium [Prolensa] 1 ml RIGHT EYE DAILY 08/19/18 [History] Furosemide [Lasix] 80 mg PO BID 08/19/18 [History] Ipratropium/Albuterol Sulfate [Combivent Respimat 20-100 Mcg] 1 puff IH DAILY [History] Oxycodone HCl [Roxybond] 5 mg PO Q4H PRN 08/19/18 [History] Spironolactone [Aldactone] 25 mg PO DAILY 08/19/18 [History] 3 Allergy/AdvReac Type Severity Reaction Status Date / Time Amoxicillin Allergy Difficulty Verified 08/01/18 09:48 Breathing metronidazole [From Flagyl] Allergy Rash Verified 08/01/18 09:48 sulfamethoxazole Allergy Rash Verified 08/01/18 09:48 [From Bactrim] trimethoprim [From Bactrim] Allergy Rash Verified 08/01/18 09:48 All Systems PM: A 10-system review of systems was performed and is negative for pertinent findings except as documented above in the HPI. - Constitutional Vitals: Temp Pulse Resp BP Pulse Ox 97.5 F L 72 18 124/68 98 08/19/18 14:48 08/19/18 14:48 08/19/18 14:48 08/19/18 14:48 08/19/18 14:48 General appearance: Present: A&O X 3 Exam: As below - Eye Eye exam: Present: normal appearance - ENT ENT exam: Present: mucous membranes moist - Respiratory Respiratory exam: Present: CTAB. Absent: accessory muscle use, rales, rhonchi, wheezes - Cardiovascular Cardiovascular exam: Present: RRR, +S1, +S2. Absent: diastolic murmur, gallop, rubs, systolic murmur - GI/Abdominal GI/Abdominal exam: Present: normal bowel sounds, soft, no peritoneal signs. Absent: distended, tenderness - Expanded Lower Extremities Exam Upper Leg exam: Present: swelling (+2 pitting edema up to bilateral inguinal region) - Neurological Exam Neurological exam: Present: oriented X3 - Psychiatric Psychiatric exam: Present: normal mood - Skin Skin exam: Present: normal color - Assessment and plan (1) Acute on chronic systolic (congestive) heart failure Current Visit: Yes Status: Acute Assessment and plan: Patient with [place] BNP of 3007 with vascular congestion on chest x-ray. Patient also volume overloaded clinically on exam with 2+ pitting edema up to bilateral inguinal region Echocardiogram on 08/02/18 revealed a LVEF of 6-10% 1 dose of IV Lasix 80 mg 1 given earlier today Will reassess in the morning Cardiology following and appreciate recommendations (2) Elevated troponin Current Visit: Yes Status: Acute Assessment and plan: Troponins elevated at 0.41->0.68->0.81 Cardiology consulted and suspects demand ischemia secondary to A. fib with RVR in the setting of CKD4 Patient does not want any intervention (3) Atrial fibrillation Current Visit: Yes Status: Chronic Assessment and plan: Patient's heart rate not controlled Continue beta kathy Patient not on oral anticoagulation due to history of recent GI bleeding Qualifiers: Atrial fibrillation type: persistent Qualified Code(s): I48.1 - Persistent atrial fibrillation (4) Benign prostate hyperplasia Current Visit: No Status: Acute Assessment and plan: Continue home medications Qualifiers: Lower urinary tract symptom presence: unspecified whether lower urinary tract symptoms present Qualified Code(s): N40.0 - Benign prostatic hyperplasia without lower urinary tract symptoms (5) CKD (chronic kidney disease) stage 4, GFR 15-29 ml/min Current Visit: No Status: Acute Assessment and plan: Creatinine slightly elevated above baseline Will continue to monitor with IV diuresis (6) Ischemic cardiomyopathy Current Visit: No Status: Acute Assessment and plan: Patient with history of CABG in addition to ICD placement Continue aspirin and beta kathy (7) Anemia Current Visit: No Status: Chronic Assessment and plan: Hemoglobin about at baseline; continue to monitor Qualifiers: Anemia type: unspecified type Qualified Code(s): D64.9 - Anemia, unspecified - Time Spent With Patient Total time spent is greater than 50% in coordination of care (as documented) at patient's floor/unit and/or counseling patient:
--- NOTE | 2018-08-19 15:20 | Cardiology Consult Note ---
<Melba Stringer Seamus - Last Filed: 08/19/18 15:59> Date of Encounter: 08/19/18 Time of Encounter: 15:00 Assessment and Plan (1) Acute on chronic systolic (congestive) heart failure Current Visit: Yes Status: Acute Acute on chronic systolic CHF; describes NYHA class III-IV symptoms. s/p ICD, implant in 2017 Suspect secondary to fluid indiscretion. Reports fluid is not restricted at inpatient rehab center. Dyspnea improved, was given IV lasix today (80 mg) and in ED yesterday at [place] [facility]. TTE 08/02/18: LVEF 6-10% Significant volume overload upon exam. Recommend ELLIOTT wraps to bilateral lower extremities. Continue Toprol XL, no ACEi/ARB due to CKD-4. Monitor kidney function overnight, re-evaluate lasix dose in AM--SCr 3.61 which is elevated from baseline. Strict I&Os, daily weights, Na/fluid restriction diet. (2) Elevated troponin Current Visit: Yes Status: Acute Elevated troponin in the setting of CKD-4, afib with RVR, and acute on chronic CHF; likely demand ischemia. No chest pain. No ST/T wave abnormalities noted. Again, patient declines further evaluation. No indication for cardiac rehab. Continue current CV medications. (3) Atrial fibrillation Current Visit: Yes Status: Chronic Longstanding history of persistent atrial fibrillation on Coumadin. Currently rate controlled. Would continue home dose of BB for rate control. Goal INR 2-3, recommend pharmacy to dose coumadin as inpatient. Qualifiers: Atrial fibrillation type: persistent Qualified Code(s): I48.1 - Persistent atrial fibrillation (4) CAD (coronary artery disease) Current Visit: No Status: Chronic Hx of CAD s/p CABG. Last ischemic evaluation 2010; medical therapy recommended. He has declined further ischemic evaluation multiple times over the past several years; which is reasonable given his advanced age, multiple co- morbidities, and absence of chest pain. Discussed again, prefers medical therapy. Code status is reportedly [id number]-- he has ICD, does not want to disarm tachy therapies at this time. Continue asa, BB Qualifiers: Coronary Disease-Associated Artery/Lesion type: bypass graft [place] vs. transplanted heart: [place] heart Associated angina: without angina Qualified Code(s): I25.810 - Atherosclerosis of coronary artery bypass graft(s) without angina pectoris (5) H/O mitral valve replacement Current Visit: No Status: Chronic Discussion w patient/family: The assessment and plan as outlined above was discussed with the patient and/or family members who expressed understanding and agreement. All questions were answered. Thank you for involving us in the care of your patient. Please call with any questions. The patient will be discussed and reviewed with Dr. Rubalcava; changes to be made accordingly. History of Present Illness Consult date: 08/19/18 Requesting physician: Tristian Gomez Consult reason: Elevated troponin Chief complaint: Shortness of breath History of present illness: Mr. Rangel is a 78 year old male with PMHx significant of HTN, CAD s/p CABG, persistent atrial fib on Coumadin, HLD, ICMP s/p ICD, COPD, MVR (tissue), and thoracic aneurysm repair who presented as transfer from [place] ED due to elevated troponin. Reportedly, yesterday, he developed worsening shortness of breath associated with anxiety and palpitations--was found to be in Afib with rates in the 120s, he was taken to the ED and HR was treated and normalized, troponin check and was elevated. He declined admission for further testing given DNRCC-DNI. He was then taken back to the SNF (inpatient rehab s/p major abdominal surgery at [place] 07/21); troponin was checked again and noted to be uptrending and patient was recommended to go to the ED again for further evaluation. He agreed to inpatient evaluation at that time. No ST/T wave changes were present upon admission ECG. No chest pain reported. He continues to decline invasive evaluation including LHC. Past Med Surg Social Fam HX - Past Medical History Attestation: Yes The following information was validated with the patient. Source: patient Medical history: aortic aneurysm, arthritis, atrial fibrillation, cardiomyopathy , CHF, COPD, GERD, hyperlipidemia, hypertension, kidney stones, osteoporosis, peripheral artery disease, renal disease, thyroid disease, valvular heart disease, other Additional medical history: SPINAL STENOSIS Psychiatric history: anxiety - Past Surgical History Surgical History: coronary bypass (CABG), heart valve replacement, herniorrhaphy , vascular surgery, other (bowel resection 07/2018 at [facility]) Additional surgical history: Umbilical hernia repair. aortic anuerysm repair. mitral valve replacement - Social History Smoking Status: Never smoker Smokeless Tobacco Status: No Alcohol use: rarely Drug use: none - Family History Daughter Adopted: No Family Member Ethnicity: Non- Living Status: Still Living Hx Family Cardiac Disorders: No Hx Family Respiratory Disorders: No Hx Family Cancer: No Hx Family GI Disorders: No Hx Family Endocrine Disorder: No Hx Family Neuromuscular Disorders: No Hx Family Neurologic Disorders: No Hx Family HEENT Disorders: No Hx Family Autoimmune Disorders: No Mother Adopted: No Living Status: Hx Family Cardiac Disorders: No Hx Family Respiratory Disorders: No Hx Family Cancer: No Hx Family GI Disorders: Yes (bleeding ulcer) Hx Family Endocrine Disorder: No Hx Family Neuromuscular Disorders: No Hx Family Neurologic Disorders: No Hx Family HEENT Disorders: No Hx Family Autoimmune Disorders: No Father Adopted: No Living Status: Hx Family Cardiac Disorders: No Hx Family Respiratory Disorders: Yes (Emphysema) Hx Family Cancer: No Hx Family GI Disorders: No Hx Family Endocrine Disorder: No Hx Family Neuromuscular Disorders: No Hx Family Neurologic Disorders: No Hx Family HEENT Disorders: No Hx Family Autoimmune Disorders: No Sister Adopted: No Living Status: Hx Family Cardiac Disorders: No Hx Family Respiratory Disorders: Yes (pneumonia) Hx Family Cancer: No Hx Family GI Disorders: No Hx Family Endocrine Disorder: No Hx Family Neuromuscular Disorders: No Hx Family Neurologic Disorders: No Hx Family HEENT Disorders: No Hx Family Autoimmune Disorders: No Medications and Allergies Montelukast [Singulair] 10 mg PO HS 08/16/17 [History] Aspirin Enteric Coated [Aspirin EC] 81 mg PO DAILY tablet. 08/18/17 [Rx] Metoprolol XL (24 HR) Succ [Toprol Xl] 50 mg PO DAILY 09/23/17 [History] Difluprednate [Durezol] 1 drop RIGHT EYE DAILY 08/01/18 [History] Finasteride [Proscar] 5 mg PO DAILY 08/01/18 [History] Potassium Citrate [Urocit-K] 10 meq PO BID 08/02/18 [History] Tamsulosin [Flomax] 0.4 mg PO DAILY 08/02/18 [History] Atorvastatin [Lipitor] 40 mg PO HS tablet 08/04/18 [Rx] Warfarin [Coumadin] 3 mg PO DAILY #0 08/04/18 [Rx] Bromfenac Sodium [Prolensa] 1 drop RIGHT EYE DAILY 08/19/18 [History] Furosemide [Lasix] 80 mg PO BID 08/19/18 [History] Ipratropium/Albuterol Sulfate [Combivent Respimat 20-100 Mcg] 1 puff IH DAILY PRN 08/19/18 [History] Oxycodone HCl [Roxybond] 5 mg PO Q4H PRN 08/19/18 [History] Spironolactone [Aldactone] 25 mg PO DAILY 08/19/18 [History] Magnesium Hydroxide [Milk of Magnesia] 30 ml PO BID PRN 08/20/18 [History] Nystatin Cream [Mycostatin Cream] 1 appl TP BID 08/20/18 [History] 3 Allergy/AdvReac Type Severity Reaction Status Date / Time Amoxicillin Allergy Difficulty Verified 08/01/18 09:48 Breathing metronidazole [From Flagyl] Allergy Rash Verified 08/01/18 09:48 sulfamethoxazole Allergy Rash Verified 08/01/18 09:48 [From Bactrim] trimethoprim [From Bactrim] Allergy Rash Verified 08/01/18 09:48 All Systems Review: The remainder of the systems were reviewed and are negative - Cardiovascular Cardiovascular: as per HPI Physical Examination Vital Signs, Last 4 Hours Temp Pulse Resp BP Pulse Ox 08/19/18 14:48 97.5 F L 72 18 124/68 98 08/19/18 12:23 83 15 125/93 99 General: Conversant, No Apparent Distress HEENT: Atraumatic, Normocephaly, Mucus Membranes Moist Cardiac: Other (irregularly irregular) Lungs: Other (rales throughout) Neuro: Alert and responsive Abdomen: Soft, Other (abdominal pad covering midline surgical incision with kane) Skin: No rashes noted on visualized skin Extremities: Other (significant LE edema, +3-4) Results Active Medications Naloxone HCl (Narcan) 0.4 mg IVP Q2MIN PRN PRN Reason: SEE COMMENTS Stop: 02/18/19 15:12 - Imaging and Cardiology Echo: report reviewed - EKG Interpretation EKG results cardiology: personally reviewed Consult Discharge Plan - Plan Referrals: Latha Painter MD [Primary Care Provider] - <Jasper Rubalcava - Last Filed: 08/20/18 14:59> Date of Encounter: 08/19/18 Time of Encounter: 17:00 - Attending Attestation I have personally performed a face to face evaluation on this patient. I have reviewed and agree with the care plan. History and Exam by me shows: \ CC: Shortness of breath HPI: Pt complains of shortness of breath and palpitations, occurred at rest, lasted approx 30 mins, resolved spontaneously. He was in ECF, reported symptoms , was transferred [facility] ER , heart rate controlled and discharged back to ECF. He was found to have a minimall elevated troponin at that time, felt to be due to chronic renal disease and poor renal clearance. He had been evaluated approximately two weeks ago for similar findings, declined further evaluation and was discharged back to ECF. On return to ECF following this ER visit, ECF rechecked troponin, found to have slight increase, and was sent back to ER. From ER evaluation pt was transferred to [place] for further evaluation of possible NSTEMI. Pt is pain free, reports shortness of breath has resolved, and declines any further evaluation. PMH: reviewed ROS: reviewed PE: pt seen and examined, agree with findings as documented. IMP/Plan: 1. Shortness of breath has resolved, back at baseline, continue medical tx. 2. Elevated troponin: minimal elevation in setting of poor renal clearance due to chronic kidney disease, recent A fib with RVR, most consistent with demand ischemia, 3. CAD: pt has known CAD, has refused and continues to refuse invasive strategy , will continue to maximize optimal medical tx. 4. A fib with RVR, ventricular response rate now well controlled, continue same , on warfarin for primary stroke risk reduction. 5. Ischemic cardiomyopathy with severely impaired LV, EF est 6 to 10%. with significant volume overload on exam, responding to diuresis, difficult situation with worsening renal failure, prognosis is very poor. Would consider pallative consult if pt declines further invasive interventions such as LHC or dialysis. Assessment and Plan Discussion w patient/family: The assessment and plan as outlined above was discussed with the patient and/or family members who expressed understanding and agreement. All questions were answered. Thank you for involving us in the care of your patient. Please call with any questions. History of Present Illness History of present illness: Mr. Rangel is a 78 year old male All Systems Review: The remainder of the systems were reviewed and are negative Physical Examination Vital Signs, Last 4 Hours Pulse Resp BP Pulse Ox 08/20/18 11:08 103 17 117/87 95 Results 08/20/18 03:43 08/20/18 03:43 Lab Results 08/19/18 08/19/18 08/20/18 15:46 21:33 03:43 WBC Hgb Hct Plt Count INR Sodium Potassium Chloride Carbon Dioxide BUN Creatinine Glucose Calcium Troponin I 1.20 H* 0.95 H* 0.75 H* 08/20/18 08/20/18 08/20/18 03:43 03:43 03:43 WBC 6.3 Hgb 9.4 L Hct 31.8 L Plt Count 204 INR 1.8 Sodium 141 Potassium 4.5 Chloride 101 Carbon Dioxide 33 H BUN 69 H Creatinine 3.39 H Glucose 89 Calcium 8.9 Troponin I
[2018-08-20] MEDS: traMADol 50 MG TABLET PO PRN (04:07)
[2018-08-20 04:28] LABS: Basophils % 0.5 %; Eosinophils # 0.2 K/mcL (0.0-0.6); Hematocrit 31.8 % (37.5-50.1); Hemoglobin 9.4 g/dL (12.9-16.9); Immature Granulocytes % 0.6 % (0-4); Lymphocytes # 0.9 K/mcL (0.6-4.6); Lymphocytes % 13.7 %; Mean Corpuscular HGB Conc 29.6 g/dL (31.6-35.5); Mean Corpuscular Volume 84.6 fL (83.0-100.0); Mean Platelet Volume 11.2 fL (9.4-12.4); Monocytes # 0.5 K/mcL (0.0-1.3); Monocytes % 8.2 %; Neutrophils # 4.7 K/mcL (1.6-8.9); Platelet Count 204 K/mcL (140-400); Red Blood Count 3.76 M/mcL (4.19-5.50)
[2018-08-20 04:37] LABS: INR 1.8; Prothrombin Time 20.6 Seconds (9.4-12.1)
[2018-08-20 04:40] LABS: Calcium 8.9 mg/dL (8.6-10.3); Potassium 4.5 mEq/L (3.5-5.1)
[2018-08-20] MEDS ORDERED: Furosemide 80 MG in 0.9 % Sodium Chloride 50 ML IVPB ONE (07:39)
--- NOTE | 2018-08-20 07:43 | Internal Med Progress Note ---
Hospitalist Progress Note - Encounter Date of Encounter: 08/20/18 Time of Encounter: 11:00 - Subjective Interval History: Patient with improving lower extremity edema but still with volume overloaded - Exam Vitals: Temp Pulse Resp BP Pulse Ox 98.2 F 125 19 123/90 96 08/20/18 07:37 08/20/18 07:37 08/20/18 07:37 08/20/18 07:37 08/20/18 07:37 Exam: Gen.: Nonacute distress, alert and oriented 3 ENT: Mucosal membranes moist Respiratory: Lungs are clear to auscultation bilaterally without any wheezing rhonchi or rales Cardiovascular: Normal S1 and S2 regular rate rhythm no murmurs rubs or gallops Abdomen: Soft, nontender and nondistended with positive bowel sounds Extremities: Bilateral lower extremity edema up to knees Skin: Normal color - Assessment and Plan (1) Acute on chronic systolic (congestive) heart failure Current Visit: Yes Status: Acute Assessment and Plan: [place] 3007 with vascular congestion on chest x-ray. Patient also volume overloaded clinically on exam with 2+ pitting edema up to bilateral inguinal region Echocardiogram on 08/02/18 revealed a LVEF of 6-10% 1 dose of IV Lasix 80 mg 1 given on 08/19/18 and an additional dose of IV Lasix 80 mg 1 will be given this morning as well Will continue fluid restriction with strict I's and O's Cardiology consulted with recommendations for IV diuresis as above (2) Elevated troponin Current Visit: Yes Status: Acute Assessment and Plan: Troponins elevated at 0.41->0.68->0.81->1.20->0.95->0.75 Cardiology consulted and suspects demand ischemia secondary to A. fib with RVR in the setting of CKD4 Patient does not want any intervention (3) Ischemic cardiomyopathy Current Visit: No Status: Inactive Assessment and Plan: Patient with history of CABG in addition to ICD placement Continue aspirin and beta kathy (4) Atrial fibrillation Current Visit: Yes Status: Chronic Assessment and Plan: Patient's heart rate not controlled Continue beta kathy Patient not on oral anticoagulation due to history of recent GI bleeding (5) CKD (chronic kidney disease) stage 4, GFR 15-29 ml/min Current Visit: No Status: Acute Assessment and Plan: Creatinine this morning is 3.39 and was 3.61 on admission Baseline appears to be around 2.9 Will continue to monitor with IV diuresis (6) Benign prostate hyperplasia Current Visit: No Status: Acute Assessment and Plan: Continue home medications (7) Anemia Current Visit: No Status: Chronic Assessment and Plan: Hemoglobin about at baseline; continue to monitor - Time Spent with Patient Total time spent is greater than 50% in coordination of care (as documented) at patient's floor/unit and/or counseling patient: Internal Medicine: Result - Labs CBC & Chem 7: 08/20/18 03:43 08/20/18 03:43 Labs: Short CBC 08/20/18 Range/Units 03:43 WBC 6.3 (4.3-11.1) K/mcL Hgb 9.4 L (12.9-16.9) g/dL Hct 31.8 L (37.5-50.1) % Plt Count 204 (140-400) K/mcL Neutrophils # 4.7 (1.6-8.9) K/mcL BMP 08/20/18 03:43 Sodium 141 Potassium 4.5 Chloride 101 Carbon Dioxide 33 H BUN 69 H Creatinine 3.39 H Glucose 89 Calcium 8.9 Cardiac Enzymes 08/19/18 08/19/18 08/20/18 Range/Units 15:46 21:33 03:43 Troponin I 1.20 H* 0.95 H* 0.75 H* (< 0.04) ng/mL - ABG Interpretation ABG results: PT/INR, D-dimer PT 20.6 Seconds (9.4-12.1) H 08/20/18 03:43 Consult Discharge Plan - Plan Referrals: Latha Painter MD [Primary Care Provider] - (4) Atrial fibrillation Qualifiers: Atrial fibrillation type: persistent Qualified Code(s): I48.1 - Persistent atrial fibrillation (6) Benign prostate hyperplasia Qualifiers: Lower urinary tract symptom presence: unspecified whether lower urinary tract symptoms present Qualified Code(s): N40.0 - Benign prostatic hyperplasia without lower urinary tract symptoms (7) Anemia Qualifiers: Anemia type: unspecified type Qualified Code(s): D64.9 - Anemia, unspecified
[2018-08-20] MEDS ORDERED: Metoprolol XL (24 HR) Succ 50 MG TAB.ER.24H PO SCH (09:00)
[2018-08-20] MEDS: Metoprolol XL (24 HR) Succ 50 MG TAB.ER.24H PO SCH (10:35)
[2018-08-20] MEDS: Aspirin Enteric Coated 81 MG Tablet PO SCH (10:35)
--- NOTE | 2018-08-20 10:35 | Cardiology Progress Note ---
Date of Encounter: 08/20/18 Time of Encounter: 10:33 Assessment and Plan (1) Acute on chronic systolic (congestive) heart failure Current Visit: Yes Status: Acute Acute on chronic CHFrEF with NYHA class III-IV symptoms. s/p ICD, implant in 2017 Suspect secondary to fluid indiscretion. Reports fluid is not restricted at inpatient rehab center. Dyspnea improved, was given IV lasix BID (80 mg) yesterday and this morning. Continues to have rales and significant edema up to his abdomen. Continue IV diuresis until euvolemic. Scr mildly improved. TTE 08/02/18: LVEF 6-10% Recommend ELLIOTT wraps to bilateral lower extremities. Continue Toprol XL, no ACEi/ARB due to CKD-4. Monitor kidney function ,KOBE on CKD on admit. SCr improving. Strict I&Os, daily weights, Na/fluid restriction diet. (2) Elevated troponin Current Visit: Yes Status: Acute Elevated troponin in the setting of CKD-4, afib with RVR, and acute on chronic CHF; likely demand ischemia. No chest pain. No ST/T wave abnormalities noted. Again, patient declines further evaluation. He is a DNRCCA-DNI. No indication for cardiac rehab. Continue current CV medications. (3) CAD (coronary artery disease) Current Visit: No Status: Chronic Hx of CAD s/p CABG. Last ischemic evaluation 2010; medical therapy recommended. He has declined further ischemic evaluation multiple times over the past several years; which is reasonable given his advanced age, multiple co- morbidities, and absence of chest pain. Discussed again, prefers medical therapy. Code status is reportedly DNRCC-DNI-- he has ICD, does not want to disarm tachy therapies at this time. Continue asa, BB Qualifiers: Coronary Disease-Associated Artery/Lesion type: bypass graft [place] vs. transplanted heart: [place] heart Associated angina: without angina Qualified Code(s): I25.810 - Atherosclerosis of coronary artery bypass graft(s) without angina pectoris (4) Atrial fibrillation Current Visit: Yes Status: Chronic Longstanding history of persistent atrial fibrillation on Coumadin. Currently HR 120's Increase toprol XL to 100 mg daily. Goal INR 2-3, recommend pharmacy to dose coumadin as inpatient. Qualifiers: Atrial fibrillation type: persistent Qualified Code(s): I48.1 - Persistent atrial fibrillation Discussion w patient/family: The assessment and plan as outlined above was discussed with the patient and/or family members who expressed understanding and agreement. All questions were answered. Thank you for involving us in the care of your patient. Please call with any questions. Subjective Principal diagnosis: acute on chronic CHFrEF Interval history: Mr. Rangel is eating breakfast. Reports he feels full easily. No chest pain. SOB with minimal activity. Objective Vital Signs, Last 4 Hours Temp Pulse Resp BP Pulse Ox 08/20/18 07:37 98.2 F 125 19 123/90 96 General: Conversant, No Apparent Distress HEENT: Atraumatic, Normocephaly, Mucus Membranes Moist Neck: No JVD, Normal carotid pulses Cardiac: Other (irregularly irregular) Lungs: Other (Rales bilateral posterior bases) Neuro: Alert and responsive, No focal deficits noted Abdomen: Soft, Non-Tender Skin: No rashes noted on visualized skin Musculoskeletal: No Chest Wall Tenderness, Other (Generalized weakness) Extremities: No Clubbing, No Cyanosis, Normal Pulses, Other (Pitting edema up to his abdomen. ) Results 08/20/18 03:43 08/20/18 03:43 Lab Results 08/19/18 08/19/18 08/20/18 15:46 21:33 03:43 WBC Hgb Hct Plt Count INR Sodium Potassium Chloride Carbon Dioxide BUN Creatinine Glucose Calcium Troponin I 1.20 H* 0.95 H* 0.75 H* 08/20/18 08/20/18 08/20/18 03:43 03:43 03:43 WBC 6.3 Hgb 9.4 L Hct 31.8 L Plt Count 204 INR 1.8 Sodium 141 Potassium 4.5 Chloride 101 Carbon Dioxide 33 H BUN 69 H Creatinine 3.39 H Glucose 89 Calcium 8.9 Troponin I - EKG Interpretation EKG results cardiology: personally reviewed Consult Discharge Plan - Plan Referrals: Latha Painter MD [Primary Care Provider] -
[2018-08-20] MEDS: Furosemide 40 MG/4 ML VIAL IVP SCH (17:56)
[2018-08-20] MEDS ORDERED: Warfarin perPT PO PRN (18:00)
[2018-08-20] MEDS ORDERED: *HR* Warfarin 5 MG TABLET PO ONE (18:00)
--- NOTE | 2018-08-20 19:59 | Internal Med Progress Note ---
Hospitalist Progress Note - Encounter Date of Encounter: 08/20/18 Time of Encounter: 11:00 - Subjective Interval History: Patient with improving lower extremity edema but still volume overloaded - Exam Vitals: Temp Pulse Resp BP Pulse Ox 98.1 F 83 18 117/89 96 08/20/18 15:15 08/20/18 15:15 08/20/18 15:15 08/20/18 15:15 08/20/18 15:15 Exam: Gen.: Nonacute distress, alert and oriented 3 ENT: Mucosal membranes moist Respiratory: Lungs are clear to auscultation bilaterally without any wheezing rhonchi or rales Cardiovascular: Normal S1 and S2 regular rate rhythm no murmurs rubs or gallops Abdomen: Soft, nontender and nondistended with positive bowel sounds Extremities: Bilateral lower extremity edema up to knees Skin: Normal color - Assessment and Plan (1) Acute on chronic systolic (congestive) heart failure Current Visit: Yes Status: Acute Assessment and Plan: [place] 3007 with vascular congestion on chest x-ray. Patient also volume overloaded clinically on exam with 2+ pitting edema up to bilateral inguinal region Echocardiogram on 08/02/18 revealed a LVEF of 6-10% 1 dose of IV Lasix 80 mg 1 given on 08/19/18 and an additional dose of IV Lasix 80 mg 1 will be given this morning as well Will continue fluid restriction with strict I's and O's Cardiology consulted with recommendations for IV diuresis as above (2) Elevated troponin Current Visit: Yes Status: Acute (3) Ischemic cardiomyopathy Current Visit: No Status: Inactive (4) Atrial fibrillation Current Visit: Yes Status: Chronic (5) CKD (chronic kidney disease) stage 4, GFR 15-29 ml/min Current Visit: No Status: Acute (6) Benign prostate hyperplasia Current Visit: No Status: Acute (7) Anemia Current Visit: No Status: Chronic - Time Spent with Patient Total time spent is greater than 50% in coordination of care (as documented) at patient's floor/unit and/or counseling patient: Internal Medicine: Result - Labs CBC & Chem 7: 08/20/18 03:43 08/20/18 03:43 Labs: Short CBC 08/20/18 Range/Units 03:43 WBC 6.3 (4.3-11.1) K/mcL Hgb 9.4 L (12.9-16.9) g/dL Hct 31.8 L (37.5-50.1) % Plt Count 204 (140-400) K/mcL Neutrophils # 4.7 (1.6-8.9) K/mcL BMP 08/20/18 03:43 Sodium 141 Potassium 4.5 Chloride 101 Carbon Dioxide 33 H BUN 69 H Creatinine 3.39 H Glucose 89 Calcium 8.9 Cardiac Enzymes 08/19/18 08/20/18 Range/Units 21:33 03:43 Troponin I 0.95 H* 0.75 H* (< 0.04) ng/mL - ABG Interpretation ABG results: PT/INR, D-dimer PT 20.6 Seconds (9.4-12.1) H 08/20/18 03:43 - Impressions Impressions Head CT 08/20/18 17:49 IMPRESSION: No acute intracranial abnormality. D/ / Jarrett Mcfadden MD / Jarrett Mcfadden MD Interpreting Provider: Jarrett Mcfadden MD Consult Discharge Plan - Plan Referrals: Latha Painter MD [Primary Care Provider] - (4) Atrial fibrillation Qualifiers: Atrial fibrillation type: persistent Qualified Code(s): I48.1 - Persistent atrial fibrillation (6) Benign prostate hyperplasia Qualifiers: Lower urinary tract symptom presence: unspecified whether lower urinary tract symptoms present Qualified Code(s): N40.0 - Benign prostatic hyperplasia without lower urinary tract symptoms (7) Anemia Qualifiers: Anemia type: unspecified type Qualified Code(s): D64.9 - Anemia, unspecified
[2018-08-21 03:43] LABS: INR 1.9; Prothrombin Time 21.7 Seconds (9.4-12.1)
[2018-08-21] MEDS: Metoprolol XL (24 HR) Succ 50 MG TAB.ER.24H PO SCH (08:09)
[2018-08-21] MEDS: Aspirin Enteric Coated 81 MG Tablet PO SCH (08:09)
[2018-08-21] MEDS: Furosemide 40 MG/4 ML VIAL IVP SCH ×2 (08:16→16:36)
--- NOTE | 2018-08-21 10:55 | Internal Med Progress Note ---
Hospitalist Progress Note - Encounter Date of Encounter: 08/21/18 Time of Encounter: 11:00 - Subjective Interval History: Patient with improving lower extremity edema but still with volume overloaded - Exam Vitals: Temp Pulse Resp BP Pulse Ox 97.5 F L 72 16 118/70 91 08/21/18 07:24 08/21/18 07:24 08/21/18 07:24 08/21/18 07:24 08/21/18 07:24 Exam: Gen.: Nonacute distress, alert and oriented 3 ENT: Mucosal membranes moist Respiratory: Lungs are clear to auscultation bilaterally without any wheezing rhonchi or rales Cardiovascular: Normal S1 and S2 regular rate rhythm no murmurs rubs or gallops Abdomen: Soft, nontender and nondistended with positive bowel sounds Extremities: Bilateral lower extremity edema up to knees Skin: Erythematous area surrounding surgical incision with yellowish exudate - Assessment and Plan (1) Acute on chronic systolic (congestive) heart failure Current Visit: Yes Status: Acute Assessment and Plan: Patient with [place] BNP of 3007 with vascular congestion on chest x-ray. Patient also volume overloaded clinically on exam with 2+ pitting edema up to bilateral inguinal region Echocardiogram on 08/02/18 revealed a LVEF of 6-10% Will continue IV Lasix and 80 mg twice daily Will continue fluid restriction with strict I's and O's Cardiology consulted with recommendations for IV diuresis as above (2) Elevated troponin Current Visit: Yes Status: Acute Assessment and Plan: Troponins elevated at 0.41->0.68->0.81->1.20->0.95->0.75 Cardiology consulted and suspects demand ischemia secondary to A. fib with RVR in the setting of CKD4 Patient does not want any intervention (3) Ischemic cardiomyopathy Current Visit: No Status: Inactive Assessment and Plan: Patient with history of CABG in addition to ICD placement Continue aspirin and beta kathy (4) Atrial fibrillation Current Visit: Yes Status: Chronic Assessment and Plan: Patient's heart rate not controlled Continue beta kathy Patient not on oral anticoagulation due to history of recent GI bleeding (5) Status post small bowel resection Current Visit: No Status: Chronic Assessment and Plan: Patient with concerns for surgical site infection with erythema surrounding kane in addition to yellowish exudate. Patient has not complaining of abdominal pain and has been afebrile without leukocytosis. Cultures were taken as an outpatient in grew [facility] Patient started on IV Levaquin Surgery consulted with recommendations to remove every other staple and to place dry dressing over surgical incision. Appreciate any further recommendations. (6) CKD (chronic kidney disease) stage 4, GFR 15-29 ml/min Current Visit: No Status: Acute Assessment and Plan: Creatinine this morning is 3.39 and was 3.61 on admission Baseline appears to be around 2.9 Will continue to monitor with IV diuresis (7) Benign prostate hyperplasia Current Visit: No Status: Acute Assessment and Plan: Continue home medications (8) Anemia Current Visit: No Status: Chronic Assessment and Plan: Hemoglobin about at baseline; continue to monitor - Time Spent with Patient Total time spent is greater than 50% in coordination of care (as documented) at patient's floor/unit and/or counseling patient: Internal Medicine: Result - Labs CBC & Chem 7: 08/20/18 03:43 08/20/18 03:43 - ABG Interpretation ABG results: PT/INR, D-dimer PT 21.7 Seconds (9.4-12.1) H 08/21/18 03:08 - Impressions Impressions Head CT 08/20/18 17:49 IMPRESSION: No acute intracranial abnormality. D/ / Jarrett Mcfadden MD / Jarrett Mcfadden MD Interpreting Provider: Jarrett Mcfadden MD Consult Discharge Plan - Plan Referrals: Latha Painter MD [Primary Care Provider] - (4) Atrial fibrillation Qualifiers: Atrial fibrillation type: persistent Qualified Code(s): I48.1 - Persistent atrial fibrillation (7) Benign prostate hyperplasia Qualifiers: Lower urinary tract symptom presence: unspecified whether lower urinary tract symptoms present Qualified Code(s): N40.0 - Benign prostatic hyperplasia without lower urinary tract symptoms (8) Anemia Qualifiers: Anemia type: unspecified type Qualified Code(s): D64.9 - Anemia, unspecified
--- NOTE | 2018-08-21 11:06 | Cardiology Progress Note ---
Date of Encounter: 08/21/18 Time of Encounter: 11:03 Assessment and Plan (1) Acute on chronic systolic (congestive) heart failure Current Visit: Yes Status: Acute Acute on chronic CHFrEF with NYHA class III-IV symptoms. s/p ICD, implant in 2017 Suspect secondary to fluid indiscretion. Reports fluid is not restricted at inpatient rehab center. Dyspnea improved. Continues to have rales (improved) and significant edema up to his abdomen. Continue IV diuresis until euvolemic. TTE 08/02/18: LVEF 6-10% Recommend ELLIOTT wraps to bilateral lower extremities. Continue Toprol XL, no ACEi/ARB due to CKD-4. Monitor kidney function ,KOBE on CKD on admit. SCr pending. Strict I&Os, daily weights, Na/fluid restriction diet. Patient is noted to be incontinent and there is difficulty obtaining strict I and O. Patient is a DNR CC -DNI. Consider palliative care consult. (2) Elevated troponin Current Visit: Yes Status: Acute Elevated troponin in the setting of CKD-4, afib with RVR, and acute on chronic CHF; likely demand ischemia. No chest pain. No ST/T wave abnormalities noted. Again, patient declines further evaluation. He is a DNRCCA-DNI. No indication for cardiac rehab. Continue current CV medications. (3) CAD (coronary artery disease) Current Visit: No Status: Chronic Hx of CAD s/p CABG. Last ischemic evaluation 2010; medical therapy recommended. He has declined further ischemic evaluation multiple times over the past several years; which is reasonable given his advanced age, multiple co- morbidities, and absence of chest pain. Discussed again, prefers medical therapy. Code status is reportedly DNRCC-DNI-- he has ICD, does not want to disarm tachy therapies at this time. Consider inpatient palliative care consult. Continue asa, BB Qualifiers: Coronary Disease-Associated Artery/Lesion type: bypass graft [place] vs. transplanted heart: [place] heart Associated angina: without angina Qualified Code(s): I25.810 - Atherosclerosis of coronary artery bypass graft(s) without angina pectoris (4) Atrial fibrillation Current Visit: Yes Status: Chronic Longstanding history of persistent atrial fibrillation on Coumadin. Currently rate controlled after toprol xl increased. Goal INR 2-3, recommend pharmacy to dose coumadin as inpatient. Qualifiers: Atrial fibrillation type: persistent Qualified Code(s): I48.1 - Persistent atrial fibrillation Discussion w patient/family: The assessment and plan as outlined above was discussed with the patient and/or family members who expressed understanding and agreement. All questions were answered. Thank you for involving us in the care of your patient. Please call with any questions. Patient noted to have redness and purulent drainage around his kane. Primary team notified of findings. Subjective Principal diagnosis: acute on chronic CHFrEF Interval history: Mr. Rangel is sitting in his chair. He denies shortness of breath. He reports his lower extremity edema has improved. He is concerned about the kane in his abdomen. Objective Vital Signs, Last 4 Hours Temp Pulse Resp BP Pulse Ox 08/21/18 07:24 97.5 F L 72 16 118/70 91 General: Conversant, No Apparent Distress HEENT: Atraumatic, Normocephaly, Mucus Membranes Moist Neck: No JVD, Normal carotid pulses Cardiac: Other (Irregular) Lungs: Normal Breath Sounds, No Wheeze, Rales, Rhonchi Neuro: Alert and responsive, No focal deficits noted Abdomen: Soft, Other (Midline kane intact, mild redness around kane and purulent drainage noted mid incision. Redness on abdomen noted. Primary team notified of findings. ) Skin: No rashes noted on visualized skin Musculoskeletal: No Chest Wall Tenderness Extremities: No Clubbing, No Cyanosis, Normal Pulses, Other (2+ edema BLE up to abndomen improved from prior. ) Results 08/20/18 03:43 08/20/18 03:43 Lab Results 08/21/18 03:08 INR 1.9 - Imaging and Cardiology Echo: report reviewed - EKG Interpretation EKG results cardiology: personally reviewed Consult Discharge Plan - Plan Referrals: Latha Painter MD [Primary Care Provider] -
[2018-08-21] MEDS ORDERED: Levofloxacin 750 MG/150 ML 750 MG/150 ML BAG IVPB SCH (16:00)
--- NOTE | 2018-08-21 16:20 | Event Note ---
Date of Encounter: 08/21/18 Time of Encounter: 16:16 - Cardiology Event Note Continue IV diuresis until near euvolemia then convert back to oral. Monitor kidney function. No further testing from cardiology. We will sign off. Please call with and questions or need for assistance.
[2018-08-21] MEDS ORDERED: *HR* Warfarin 3 MG TABLET PO ONE (18:00)
[2018-08-22 04:20] LABS: INR 2.9
--- NOTE | 2018-08-22 07:50 | Internal Med Progress Note ---
Hospitalist Progress Note - Encounter Date of Encounter: 08/22/18 Time of Encounter: 11:00 - Subjective Interval History: Patient with improving lower extremity edema but still with volume overloaded - Exam Vitals: Temp Pulse Resp BP Pulse Ox 98.1 F 71 15 119/62 95 08/22/18 06:38 08/22/18 06:38 08/22/18 06:38 08/22/18 06:38 08/22/18 06:38 Exam: Gen.: Nonacute distress, alert and oriented 3 ENT: Mucosal membranes moist Respiratory: Lungs are clear to auscultation bilaterally without any wheezing rhonchi or rales Cardiovascular: Normal S1 and S2 regular rate rhythm no murmurs rubs or gallops Abdomen: Soft, nontender and nondistended with positive bowel sounds Extremities: Bilateral lower extremity edema up to knees Skin: Erythematous area surrounding surgical incision with yellowish exudate - Assessment and Plan (1) Acute on chronic systolic (congestive) heart failure Current Visit: Yes Status: Acute Assessment and Plan: Acute on chronic CHFrEF with NYHA class III-IV symptoms. s/p ICD, implant in 2017 Patient with a BNP of 3007 with vascular congestion on chest x-ray. Patient also volume overloaded clinically on exam with 2+ pitting edema up to bilateral inguinal region Echocardiogram on 08/02/18 revealed a LVEF of 6-10% Will continue IV Lasix and 80 mg twice daily Will continue fluid restriction with strict I's and O's (2) Elevated troponin Current Visit: Yes Status: Acute Assessment and Plan: Troponins elevated at 0.41->0.68->0.81->1.20->0.95->0.75 Cardiology consulted and suspects demand ischemia secondary to A. fib with RVR in the setting of CKD4 Patient does not want any intervention (3) Atrial fibrillation Current Visit: Yes Status: Chronic Assessment and Plan: Heart rate controlled on beta kathy Continue oral anticoagulation with Coumadin (4) Status post small bowel resection Current Visit: No Status: Chronic Assessment and Plan: Patient with concerns for surgical site infection with erythema surrounding kane in addition to yellowish exudate. Patient has not complaining of abdominal pain and has been afebrile without leukocytosis. Cultures were taken as an outpatient in [facility] Patient started on IV Levaquin Surgery consulted with recommendations to remove every other staple and to place dry dressing over surgical incision. Appreciate any further recommendations. (5) CKD (chronic kidney disease) stage 4, GFR 15-29 ml/min Current Visit: No Status: Acute Assessment and Plan: Serum creatinine: 3.61->3.39-> Baseline appears to be around 2.9 Will continue to monitor with IV diuresis (6) Benign prostate hyperplasia Current Visit: No Status: Acute Assessment and Plan: Continue home medications (7) Anemia Current Visit: No Status: Chronic Assessment and Plan: Hemoglobin about at baseline; continue to monitor DVT Prophylaxis: On Coumadin as above - Time Spent with Patient Total time spent is greater than 50% in coordination of care (as documented) at patient's floor/unit and/or counseling patient: Internal Medicine: Result - Labs CBC & Chem 7: 08/22/18 07:58 08/22/18 07:58 - ABG Interpretation ABG results: PT/INR, D-dimer PT 33.0 Seconds (9.4-12.1) H D 08/22/18 03:32 Consult Discharge Plan - Plan Referrals: Keanu Elizabeth MD [Non-Partnered Physician] - 08/28/18 11:15 am (3) Atrial fibrillation Qualifiers: Atrial fibrillation type: persistent Qualified Code(s): I48.1 - Persistent atrial fibrillation (6) Benign prostate hyperplasia Qualifiers: Lower urinary tract symptom presence: unspecified whether lower urinary tract symptoms present Qualified Code(s): N40.0 - Benign prostatic hyperplasia without lower urinary tract symptoms (7) Anemia Qualifiers: Anemia type: unspecified type Qualified Code(s): D64.9 - Anemia, unspecified
[2018-08-22 08:09] LABS: Basophils % 0.4 %; Eosinophils # 0.2 K/mcL (0.0-0.6); Hematocrit 33.4 % (37.5-50.1); Hemoglobin 9.8 g/dL (12.9-16.9); Immature Granulocytes % 0.6 % (0-4); Lymphocytes # 0.8 K/mcL (0.6-4.6); Lymphocytes % 14.3 %; Mean Corpuscular HGB Conc 29.3 g/dL (31.6-35.5); Mean Corpuscular Hemoglobin 24.8 pg (28.0-33.3); Mean Corpuscular Volume 84.6 fL (83.0-100.0); Mean Platelet Volume 10.8 fL (9.4-12.4); Monocytes # 0.4 K/mcL (0.0-1.3); Monocytes % 8.1 %; Neutrophils # 3.9 K/mcL (1.6-8.9); Platelet Count 208 K/mcL (140-400); Red Blood Count 3.95 M/mcL (4.19-5.50); Red Cell Distribution Width 16.6 % (11.5-14.5); Segmented Neutrophils % 73.6 %
[2018-08-22 08:30] LABS: Calcium 8.8 mg/dL (8.6-10.3); Potassium 4.2 mEq/L (3.5-5.1)
--- NOTE | 2018-08-22 09:59 | General Surgery Consult Note ---
<Lyudmila Acuña - Last Filed: 08/22/18 12:23> Date of Encounter: 08/22/18 Time of Encounter: 09:57 Assessment and Plan (1) Status post small bowel resection Current Visit: No Status: Chronic Superficial wound dehiscence with out signs of infection is not an unusual complication considering patient's overall health - serial abdominal exams - continue supportive care and pain management - start daily wound care with peroxide washing - okay to advance diet per primary team - antibiotics per primary team, low concern for wound infection - no indication for surgical intervention at this time Surgery will continue to follow History of Present Illness Consult date: 08/22/18 Reason for consult: wound care Requesting physician: Tristian Gomez History of present illness: 78 y/o male admitted heart failure but for concern for wound care. 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 Past Med Surg Social Fam HX - Past Medical History Medical history: aortic aneurysm, arthritis, atrial fibrillation, cardiomyopathy , CHF, COPD, GERD, hyperlipidemia, hypertension, kidney stones, osteoporosis, peripheral artery disease, renal disease, thyroid disease, valvular heart disease, other Additional medical history: SPINAL STENOSIS Psychiatric history: anxiety - Past Surgical History Surgical History: heart valve replacement, herniorrhaphy, vascular surgery Additional surgical history: Umbilical hernia repair. aortic anuerysm repair. mitral valve replacement - Social History Smoking Status: Never smoker Smokeless Tobacco Status: No Alcohol use: rarely Drug use: none - Family History Daughter Adopted: No Family Member Ethnicity: Non- Living Status: Still Living Hx Family Cardiac Disorders: No Hx Family Respiratory Disorders: No Hx Family Cancer: No Hx Family GI Disorders: No Hx Family Endocrine Disorder: No Hx Family Neuromuscular Disorders: No Hx Family Neurologic Disorders: No Hx Family HEENT Disorders: No Hx Family Autoimmune Disorders: No Mother Adopted: No Living Status: Hx Family Cardiac Disorders: No Hx Family Respiratory Disorders: No Hx Family Cancer: No Hx Family GI Disorders: Yes (bleeding ulcer) Hx Family Endocrine Disorder: No Hx Family Neuromuscular Disorders: No Hx Family Neurologic Disorders: No Hx Family HEENT Disorders: No Hx Family Autoimmune Disorders: No Father Adopted: No Living Status: Hx Family Cardiac Disorders: No Hx Family Respiratory Disorders: Yes (Emphysema) Hx Family Cancer: No Hx Family GI Disorders: No Hx Family Endocrine Disorder: No Hx Family Neuromuscular Disorders: No Hx Family Neurologic Disorders: No Hx Family HEENT Disorders: No Hx Family Autoimmune Disorders: No Sister Adopted: No Living Status: Hx Family Cardiac Disorders: No Hx Family Respiratory Disorders: Yes (pneumonia) Hx Family Cancer: No Hx Family GI Disorders: No Hx Family Endocrine Disorder: No Hx Family Neuromuscular Disorders: No Hx Family Neurologic Disorders: No Hx Family HEENT Disorders: No Hx Family Autoimmune Disorders: No Medications and Allergies Montelukast [Singulair] 10 mg PO HS 08/16/17 [History] Aspirin Enteric Coated [Aspirin EC] 81 mg PO DAILY tablet. 08/18/17 [Rx] Metoprolol XL (24 HR) Succ [Toprol Xl] 50 mg PO DAILY 09/23/17 [History] Difluprednate [Durezol] 1 drop RIGHT EYE DAILY 08/01/18 [History] Finasteride [Proscar] 5 mg PO DAILY 08/01/18 [History] Potassium Citrate [Urocit-K] 10 meq PO BID 08/02/18 [History] Tamsulosin [Flomax] 0.4 mg PO DAILY 08/02/18 [History] Atorvastatin [Lipitor] 40 mg PO HS tablet 08/04/18 [Rx] Warfarin [Coumadin] 3 mg PO DAILY #0 08/04/18 [Rx] Bromfenac Sodium [Prolensa] 1 drop RIGHT EYE DAILY 08/19/18 [History] Furosemide [Lasix] 80 mg PO BID 08/19/18 [History] Ipratropium/Albuterol Sulfate [Combivent Respimat 20-100 Mcg] 1 puff IH DAILY PRN 08/19/18 [History] Oxycodone HCl [Roxybond] 5 mg PO Q4H PRN 08/19/18 [History] Spironolactone [Aldactone] 25 mg PO DAILY 08/19/18 [History] Magnesium Hydroxide [Milk of Magnesia] 30 ml PO BID PRN 08/20/18 [History] Nystatin Cream [Mycostatin Cream] 1 appl TP BID 08/20/18 [History] 3 Allergy/AdvReac Type Severity Reaction Status Date / Time Amoxicillin Allergy Difficulty Verified 08/01/18 09:48 Breathing metronidazole [From Flagyl] Allergy Rash Verified 08/01/18 09:48 sulfamethoxazole Allergy Rash Verified 08/01/18 09:48 [From Bactrim] trimethoprim [From Bactrim] Allergy Rash Verified 08/01/18 09:48 Review of Systems All systems PM: The remainder of the systems were reviewed and are negative - Constitutional no chills, no fever(s) - Gastrointestinal no abdominal pain, no constipation, no diarrhea General Surgery Exam Initial Vital Signs Pulse Resp BP Pulse Ox 83 15 125/93 99 08/19/18 12:23 08/19/18 12:23 08/19/18 12:23 08/19/18 12:23 - General physical appearance well developed, well nourished, no distress - Eyes normal ocular movement - ENT normal pinna, normal nares, decreased hearing - Respiratory normal expansion, normal respiratory effort - Cardiovascular Cardiovascular exam: Present: tachycardia, irregular rhythm - Abdomen Abdomen general surgery: Present: bowel sounds present, soft, non tender Hernia: Present: none - Incision Incision: Present: erythema, approximated. Absent: draining, purulent - Neurologic Present: CN 2-12 grossly intact, normal coordination, normal sensation - Musculoskeletal Present: normal gait, normal posture - Psychiatric Psychiatric general surgery: Present: A&Ox3, speech is normal, memory intact Exam Initial Vital Signs Pulse Resp BP Pulse Ox 83 15 125/93 99 08/19/18 12:23 08/19/18 12:23 08/19/18 12:23 08/19/18 12:23 Results - Labs 08/22/18 07:58 08/22/18 07:58 Abnormal lab results RBC 3.95 M/mcL (4.19-5.50) L 08/22/18 07:58 Hgb 9.8 g/dL (12.9-16.9) L 08/22/18 07:58 Hct 33.4 % (37.5-50.1) L 08/22/18 07:58 MCH 24.8 pg (28.0-33.3) L 08/22/18 07:58 MCHC 29.3 g/dL (31.6-35.5) L 08/22/18 07:58 RDW 16.6 % (11.5-14.5) H 08/22/18 07:58 PT 33.0 Seconds (9.4-12.1) H D 08/22/18 03:32 Carbon Dioxide 34 mEq/L (23-29) H 08/22/18 07:58 BUN 68 mg/dL (8-23) H 08/22/18 07:58 Creatinine 3.76 mg/dL (0.70-1.30) H 08/22/18 07:58 Est GFR ( Amer) 19 (> 60) L 08/22/18 07:58 Est GFR (Non-Af Amer) 16 (> 60) L 08/22/18 07:58 Calculated Osmolality 313 (280-300) H 08/22/18 07:58 Troponin I 0.75 ng/mL (< 0.04) H* 08/20/18 03:43 Diabetes panel 08/22/18 Range/Units 07:58 Sodium 142 (136-145) mEq/L Potassium 4.2 (3.5-5.1) mEq/L Chloride 101 (98-107) mEq/L Carbon Dioxide 34 H (23-29) mEq/L BUN 68 H (8-23) mg/dL Creatinine 3.76 H (0.70-1.30) mg/dL Glucose 82 (70-105) mg/dL Calcium 8.8 (8.6-10.3) mg/dL Calcium panel 08/22/18 Range/Units 07:58 Calcium 8.8 (8.6-10.3) mg/dL Pituitary panel 08/22/18 Range/Units 07:58 Sodium 142 (136-145) mEq/L Potassium 4.2 (3.5-5.1) mEq/L Chloride 101 (98-107) mEq/L Carbon Dioxide 34 H (23-29) mEq/L BUN 68 H (8-23) mg/dL Creatinine 3.76 H (0.70-1.30) mg/dL Glucose 82 (70-105) mg/dL Calcium 8.8 (8.6-10.3) mg/dL Adrenal panel 08/22/18 Range/Units 07:58 Sodium 142 (136-145) mEq/L Potassium 4.2 (3.5-5.1) mEq/L Chloride 101 (98-107) mEq/L Carbon Dioxide 34 H (23-29) mEq/L BUN 68 H (8-23) mg/dL Creatinine 3.76 H (0.70-1.30) mg/dL Glucose 82 (70-105) mg/dL Calcium 8.8 (8.6-10.3) mg/dL All other labs normal. Consult Discharge Plan - Plan Referrals: Latha Painter MD [Primary Care Provider] - <Reinaldo Frias - Last Filed: 08/22/18 13:30> Date of Encounter: 08/22/18 Review of Systems All systems PM: The remainder of the systems were reviewed and are negative General Surgery Exam Initial Vital Signs Pulse Resp BP Pulse Ox 83 15 125/93 99 08/19/18 12:23 08/19/18 12:23 08/19/18 12:23 08/19/18 12:23 Exam Initial Vital Signs Pulse Resp BP Pulse Ox 83 15 125/93 99 08/19/18 12:23 08/19/18 12:23 08/19/18 12:23 08/19/18 12:23 Results - Labs 08/22/18 07:58 08/22/18 07:58 Abnormal lab results RBC 3.95 M/mcL (4.19-5.50) L 08/22/18 07:58 Hgb 9.8 g/dL (12.9-16.9) L 08/22/18 07:58 Hct 33.4 % (37.5-50.1) L 08/22/18 07:58 MCH 24.8 pg (28.0-33.3) L 08/22/18 07:58 MCHC 29.3 g/dL (31.6-35.5) L 08/22/18 07:58 RDW 16.6 % (11.5-14.5) H 08/22/18 07:58 PT 33.0 Seconds (9.4-12.1) H D 08/22/18 03:32 Carbon Dioxide 34 mEq/L (23-29) H 08/22/18 07:58 BUN 68 mg/dL (8-23) H 08/22/18 07:58 Creatinine 3.76 mg/dL (0.70-1.30) H 08/22/18 07:58 Est GFR ( Amer) 19 (> 60) L 08/22/18 07:58 Est GFR (Non-Af Amer) 16 (> 60) L 08/22/18 07:58 Calculated Osmolality 313 (280-300) H 08/22/18 07:58 Troponin I 0.75 ng/mL (< 0.04) H* 08/20/18 03:43 Diabetes panel 08/22/18 Range/Units 07:58 Sodium 142 (136-145) mEq/L Potassium 4.2 (3.5-5.1) mEq/L Chloride 101 (98-107) mEq/L Carbon Dioxide 34 H (23-29) mEq/L BUN 68 H (8-23) mg/dL Creatinine 3.76 H (0.70-1.30) mg/dL Glucose 82 (70-105) mg/dL Calcium 8.8 (8.6-10.3) mg/dL Calcium panel 08/22/18 Range/Units 07:58 Calcium 8.8 (8.6-10.3) mg/dL Pituitary panel 08/22/18 Range/Units 07:58 Sodium 142 (136-145) mEq/L Potassium 4.2 (3.5-5.1) mEq/L Chloride 101 (98-107) mEq/L Carbon Dioxide 34 H (23-29) mEq/L BUN 68 H (8-23) mg/dL Creatinine 3.76 H (0.70-1.30) mg/dL Glucose 82 (70-105) mg/dL Calcium 8.8 (8.6-10.3) mg/dL Adrenal panel 08/22/18 Range/Units 07:58 Sodium 142 (136-145) mEq/L Potassium 4.2 (3.5-5.1) mEq/L Chloride 101 (98-107) mEq/L Carbon Dioxide 34 H (23-29) mEq/L BUN 68 H (8-23) mg/dL Creatinine 3.76 H (0.70-1.30) mg/dL Glucose 82 (70-105) mg/dL Calcium 8.8 (8.6-10.3) mg/dL All other labs normal. - Attending Attestation I examined this patient and my medical decision-making was reviewed with the Resident Physician. I agree with the documented findings, disposition and treatment plan as described except to the extent set forth below. The patient is seen and evaluated with rest and on morning rounds. The patient had exploratory laparotomy at [facility]. Evidently he had resection and re- anastomosis ischemic bowel. He has a superficial dehiscence of his midline wound was some mild erythema. This appears to be a superficial wound infection associated with a class IV wound secondary to bowel necrosis. This occurred at another institution and does not represent an infection from [place]. Remove every other staple and cleanse with peroxide. A limited course of antibiotics is indicated. Reinaldo Frias MD FACS
[2018-08-22] MEDS: Metoprolol XL (24 HR) Succ 50 MG TAB.ER.24H PO SCH (11:01)
[2018-08-22] MEDS: Furosemide 40 MG/4 ML VIAL IVP SCH ×2 (11:01→18:28)
[2018-08-22] MEDS: Aspirin Enteric Coated 81 MG Tablet PO SCH (11:01)
[2018-08-22] MEDS: Finasteride 5 MG TABLET PO SCH (18:28)
[2018-08-22] MEDS: Potassium Citrate 10 MEQ TABLET.ER PO SCH (21:43)
[2018-08-23 05:18] LABS: INR 2.8; Prothrombin Time 31.2 Seconds (9.4-12.1)
--- NOTE | 2018-08-23 08:23 | Internal Med Progress Note ---
Hospitalist Progress Note - Encounter Date of Encounter: 08/23/18 Time of Encounter: 11:00 - Subjective Interval History: Patient with improving lower extremity edema but still with volume overloaded Abdominal surgical site erythema surrounding surgical incision improving as well Anticipate 1 additional day of IV diuresis and discharge on 08/24/18 - Exam Vitals: Temp Pulse Resp BP Pulse Ox 97.8 F 59 15 111/65 99 08/23/18 07:27 08/23/18 07:27 08/23/18 07:27 08/23/18 07:27 08/23/18 07:27 Exam: Gen.: Nonacute distress, alert and oriented 3 ENT: Mucosal membranes moist Respiratory: Lungs are clear to auscultation bilaterally without any wheezing rhonchi or rales Cardiovascular: Normal S1 and S2 regular rate rhythm no murmurs rubs or gallops Abdomen: Soft, nontender and nondistended with positive bowel sounds Extremities: Bilateral lower extremity edema up to knees Skin: Erythematous area surrounding surgical incision with yellowish exudate - Assessment and Plan (1) Acute on chronic systolic (congestive) heart failure Current Visit: Yes Status: Acute Assessment and Plan: Acute on chronic CHFrEF with NYHA class III-IV symptoms. s/p ICD, implant in 2017 [place] 3007 with vascular congestion on chest x-ray. Patient also volume overloaded clinically on exam with 2+ pitting edema up to bilateral inguinal region Echocardiogram on 08/02/18 revealed a LVEF of 6-10% Patient with elevating creatinine therefore will decrease dose of IV Lasix from 80 mg twice daily to 40 mg twice daily Will continue fluid restriction with strict I's and O's Anticipate discharge on 08/24/18 (2) Elevated troponin Current Visit: Yes Status: Acute Assessment and Plan: Troponins elevated at 0.41->0.68->0.81->1.20->0.95->0.75 Cardiology consulted and suspects demand ischemia secondary to A. fib with RVR in the setting of CKD4 Patient does not want any intervention (3) CKD (chronic kidney disease) stage 4, GFR 15-29 ml/min Current Visit: No Status: Acute Assessment and Plan: Serum creatinine: 3.61->3.39-> 3.76-> Baseline appears to be around 2.9 Will therefore decrease IV diuresis Continue to monitor (4) Atrial fibrillation Current Visit: Yes Status: Chronic Assessment and Plan: Heart rate controlled on beta kathy Continue oral anticoagulation with Coumadin (5) Status post small bowel resection Current Visit: No Status: Chronic Assessment and Plan: Patient with concerns for surgical site infection with erythema surrounding kane in addition to yellowish exudate. Patient has not complaining of abdominal pain and has been afebrile without leukocytosis. Cultures were taken as an outpatient in [facility] Continue day 3 of IV Levaquin Surgery consulted with recommendations to remove every other staple and to place dry dressing over surgical incision. Appreciate any further recommendations. (6) Benign prostate hyperplasia Current Visit: No Status: Acute Assessment and Plan: Continue home medications (7) Anemia Current Visit: No Status: Chronic Assessment and Plan: Hemoglobin about at baseline; continue to monitor DVT Prophylaxis: On Coumadin as above - Time Spent with Patient Total time spent is greater than 50% in coordination of care (as documented) at patient's floor/unit and/or counseling patient: Internal Medicine: Result - Labs CBC & Chem 7: 08/23/18 08:40 08/23/18 08:40 Labs: BMP 08/22/18 07:58 Sodium 142 Potassium 4.2 Chloride 101 Carbon Dioxide 34 H BUN 68 H Creatinine 3.76 H Glucose 82 Calcium 8.8 - ABG Interpretation ABG results: PT/INR, D-dimer PT 31.2 Seconds (9.4-12.1) H 08/23/18 04:29 Consult Discharge Plan - Plan Referrals: Keanu Elizabeth MD [Non-Partnered Physician] - 08/28/18 11:15 am (4) Atrial fibrillation Qualifiers: Atrial fibrillation type: persistent Qualified Code(s): I48.1 - Persistent atrial fibrillation (6) Benign prostate hyperplasia Qualifiers: Lower urinary tract symptom presence: unspecified whether lower urinary tract symptoms present Qualified Code(s): N40.0 - Benign prostatic hyperplasia without lower urinary tract symptoms (7) Anemia Qualifiers: Anemia type: unspecified type Qualified Code(s): D64.9 - Anemia, unspecified
[2018-08-23 08:59] LABS: Basophils % 0.2 %; Eosinophils # 0.2 K/mcL (0.0-0.6); Eosinophils % 3.2 %; Hematocrit 31.6 % (37.5-50.1); Hemoglobin 9.2 g/dL (12.9-16.9); Immature Granulocytes % 0.2 % (0-4); Lymphocytes # 0.8 K/mcL (0.6-4.6); Lymphocytes % 15.8 %; Mean Corpuscular HGB Conc 29.1 g/dL (31.6-35.5); Mean Corpuscular Hemoglobin 24.7 pg (28.0-33.3); Mean Corpuscular Volume 84.7 fL (83.0-100.0); Mean Platelet Volume 9.8 fL (9.4-12.4); Monocytes # 0.4 K/mcL (0.0-1.3); Monocytes % 8.5 %; Neutrophils # 3.6 K/mcL (1.6-8.9); Platelet Count 192 K/mcL (140-400); Red Blood Count 3.73 M/mcL (4.19-5.50); Red Cell Distribution Width 16.6 % (11.5-14.5); Segmented Neutrophils % 72.1 %
[2018-08-23] MEDS: Finasteride 5 MG TABLET PO SCH (09:00)
[2018-08-23] MEDS: Aspirin Enteric Coated 81 MG Tablet PO SCH (09:00)
[2018-08-23] MEDS ORDERED: levoFLOXacin 750 MG TABLET PO SCH (09:00)
[2018-08-23] MEDS: Metoprolol XL (24 HR) Succ 50 MG TAB.ER.24H PO SCH (09:00)
[2018-08-23] MEDS: Potassium Citrate 10 MEQ TABLET.ER PO SCH ×2 (09:00→21:43)
[2018-08-23] MEDS: Furosemide 40 MG/4 ML VIAL IVP SCH ×2 (09:02→17:38)
[2018-08-23 09:10] LABS: Calcium 8.7 mg/dL (8.6-10.3); Potassium 4.1 mEq/L (3.5-5.1)
--- NOTE | 2018-08-23 09:43 | General Surgery Progress Note ---
Date of Encounter: 08/23/18 Time of Encounter: 09:39 - Assessment and Plan (1) Status post small bowel resection Current Visit: No Status: Chronic Superficial wound dehiscence with out signs of infection is not an unusual complication considering patient's overall health - serial abdominal exams - continue supportive care and pain management - continue daily wound care with peroxide washing Okay to discharge from surgical perspective, he will need home health that includes wound care similar to inpatient instructions. He needs follow up with [facility] surgeons or a wound clinic closer to his home in [place]. Subjective Patient reports: no new complaints, feels better, tolerating a regular diet, flatus, bowel movement, afebrile Objective Vital Signs - Last 8 Hours Temp Pulse Resp BP Pulse Ox 08/23/18 07:27 97.8 F 59 15 111/65 99 08/23/18 05:00 97.8 F 62 16 101/56 97 Intake and Output 08/22/18 08/23/18 08/23/18 23:59 07:59 15:59 Intake Total 60 / 60 10 Output Total 0 / 0 Balance 60 / 60 10 10 Intake: Oral 60 / 60 10 10 Output: Urine 0 / 0 Other: # Voids 1 3 # Urine Diapers 1 Weight 78.2 kg Patient Weight 08/23/18 23:59 Weight 78.2 kg - General physical appearance well developed, well nourished, no distress - Eyes normal ocular movement - ENT normal pinna, normal nares, normal mucosa - Respiratory normal expansion, normal respiratory effort, clear to auscultation - Cardiovascular Cardiovascular exam: Present: RRR, no murmurs/rubs/gallops - Abdomen Abdomen: Present: bowel sounds present, soft, non tender Hernia: none - Incision Incision: Present: clean and dry, erythema (unchanged from yesterday), approximated. Absent: inflamed - Integumentary no rash, no growths, no abnormal pigmentation - Musculoskeletal normal gait, normal posture - Psychiatric oriented to time, oriented to person, oriented to place, speech is normal, memory intact - Labs 08/23/18 08:40 08/23/18 08:40 Diabetes panel 08/23/18 Range/Units 08:40 Sodium 142 (136-145) mEq/L Potassium 4.1 (3.5-5.1) mEq/L Chloride 100 (98-107) mEq/L Carbon Dioxide 36 H (23-29) mEq/L BUN 69 H (8-23) mg/dL Creatinine 3.93 H (0.70-1.30) mg/dL Glucose 131 H (70-105) mg/dL Calcium 8.7 (8.6-10.3) mg/dL Calcium panel 08/23/18 Range/Units 08:40 Calcium 8.7 (8.6-10.3) mg/dL Pituitary panel 08/23/18 Range/Units 08:40 Sodium 142 (136-145) mEq/L Potassium 4.1 (3.5-5.1) mEq/L Chloride 100 (98-107) mEq/L Carbon Dioxide 36 H (23-29) mEq/L BUN 69 H (8-23) mg/dL Creatinine 3.93 H (0.70-1.30) mg/dL Glucose 131 H (70-105) mg/dL Calcium 8.7 (8.6-10.3) mg/dL Adrenal panel 08/23/18 Range/Units 08:40 Sodium 142 (136-145) mEq/L Potassium 4.1 (3.5-5.1) mEq/L Chloride 100 (98-107) mEq/L Carbon Dioxide 36 H (23-29) mEq/L BUN 69 H (8-23) mg/dL Creatinine 3.93 H (0.70-1.30) mg/dL Glucose 131 H (70-105) mg/dL Calcium 8.7 (8.6-10.3) mg/dL Consult Discharge Plan - Plan Referrals: Keanu Elizabeth MD [Non-Partnered Physician] - 08/28/18 11:15 am
[2018-08-23] MEDS ORDERED: *HR* Warfarin 2.5 MG TABLET PO ONE (18:00)
[2018-08-23] MEDS: traMADol 50 MG TABLET PO PRN (23:35)
[2018-08-24 04:54] LABS: INR 2.4; Prothrombin Time 26.9 Seconds (9.4-12.1)
[2018-08-24 07:02] VITALS: BP 109/86
[2018-08-24] MEDS: Finasteride 5 MG TABLET PO SCH (09:32)
[2018-08-24] MEDS: Aspirin Enteric Coated 81 MG Tablet PO SCH (09:32)
[2018-08-24] MEDS: Metoprolol XL (24 HR) Succ 50 MG TAB.ER.24H PO SCH (09:32)
[2018-08-24] MEDS: Potassium Citrate 10 MEQ TABLET.ER PO SCH (09:32)
--- NOTE | 2018-08-24 13:54 | Physician Discharge Referral ---
Home Health/Hosp Referral Info Transfer to: Home Health - Diagnosis (1) Acute on chronic systolic (congestive) heart failure Status: Acute (2) Elevated troponin Status: Acute (3) CKD (chronic kidney disease) stage 4, GFR 15-29 ml/min Status: Acute (4) Atrial fibrillation Status: Chronic (5) Status post small bowel resection Status: Chronic (6) Benign prostate hyperplasia Status: Acute (7) Anemia Status: Chronic - Respiratory Orders Smoking Cessation: Smoking cessation has been advised. For more information, call the [place] Tobacco Quit Line at 0-906-TDMT-NOW. - Services Needed Following services are medically necessary services: Nursing, Physical Therapy - Transfer Medications Prescriptions: levoFLOXacin [Levaquin] 750 mg PO Q48H #7 tablet Metoprolol XL (24 HR) Succ [Toprol Xl] 100 mg PO DAILY #60 tab.er.24h Home Medications: Montelukast [Singulair] 10 mg PO HS 08/16/17 [History] Aspirin Enteric Coated [Aspirin EC] 81 mg PO DAILY tablet. 08/18/17 [Rx] Difluprednate [Durezol] 1 drop RIGHT EYE DAILY 08/01/18 [History] Finasteride [Proscar] 5 mg PO DAILY 08/01/18 [History] Potassium Citrate [Urocit-K] 10 meq PO BID 08/02/18 [History] Tamsulosin [Flomax] 0.4 mg PO DAILY 08/02/18 [History] Atorvastatin [Lipitor] 40 mg PO HS tablet 08/04/18 [Rx] Warfarin [Coumadin] 3 mg PO DAILY #0 08/04/18 [Rx] Bromfenac Sodium [Prolensa] 1 drop RIGHT EYE DAILY 08/19/18 [History] Furosemide [Lasix] 80 mg PO BID 08/19/18 [History] Ipratropium/Albuterol Sulfate [Combivent Respimat 20-100 Mcg] 1 puff IH DAILY PRN 08/19/18 [History] Oxycodone HCl [Roxybond] 5 mg PO Q4H PRN 08/19/18 [History] Spironolactone [Aldactone] 25 mg PO DAILY 08/19/18 [History] Magnesium Hydroxide [Milk of Magnesia] 30 ml PO BID PRN 08/20/18 [History] Nystatin Cream [Mycostatin Cream] 1 appl TP BID 08/20/18 [History] Metoprolol XL (24 HR) Succ [Toprol Xl] 100 mg PO DAILY #60 tab.er.24h 08/24/18 [ Rx] levoFLOXacin [Levaquin] 750 mg PO Q48H #7 tablet 08/24/18 [Rx] Allergies/Adverse Reactions: 3 Allergy/AdvReac Type Severity Reaction Status Date / Time Amoxicillin Allergy Difficulty Verified 08/01/18 09:48 Breathing metronidazole [From Flagyl] Allergy Rash Verified 08/01/18 09:48 sulfamethoxazole Allergy Rash Verified 08/01/18 09:48 [From Bactrim] trimethoprim [From Bactrim] Allergy Rash Verified 08/01/18 09:48 Certification: Further, I certify that my clinical findings support that this patient is homebound (i.e. absences from home require considerable and taxing effort and are for medical reasons or uatsdin services or infrequently or short duration when for other reasons) because: Homebound Reason: Patient requires assistance of a person or device to safely leave home Attestation: My signature below is to certify that this patient is under my care and that I, or nurse practitioner, or a physician's [employer] assistant manager working with me, has a face-to -face encounter with this patient.
--- NOTE | 2018-08-24 13:54 | Discharge Summary ---
Orders not resulted at time of discharge: Pending orders 08/25/18 04:00 PT/INR [Prothrombin Time INR] [COAG] AM 0400 Date of Encounter: 08/24/18 - Discharge Diagnosis (1) Acute on chronic systolic (congestive) heart failure Status: Acute (2) Elevated troponin Status: Acute (3) CKD (chronic kidney disease) stage 4, GFR 15-29 ml/min Status: Acute (4) Atrial fibrillation Status: Chronic Qualifiers: Atrial fibrillation type: persistent Qualified Code(s): I48.1 - Persistent atrial fibrillation (5) Status post small bowel resection Status: Chronic (6) Benign prostate hyperplasia Status: Acute Qualifiers: Lower urinary tract symptom presence: unspecified whether lower urinary tract symptoms present Qualified Code(s): N40.0 - Benign prostatic hyperplasia without lower urinary tract symptoms (7) Anemia Status: Chronic Qualifiers: Anemia type: unspecified type Qualified Code(s): D64.9 - Anemia, unspecified Hospital course: Mr. Rangel is a 78 year old male - Time Spent with Patient Total time spent providing and/or coordinating discharge services: - Discharge Medications Prescriptions: levoFLOXacin [Levaquin] 750 mg PO Q48H #7 tablet Metoprolol XL (24 HR) Succ [Toprol Xl] 100 mg PO DAILY #60 tab.er.24h Home Medications: Montelukast [Singulair] 10 mg PO HS 08/16/17 [History] Aspirin Enteric Coated [Aspirin EC] 81 mg PO DAILY tablet. 08/18/17 [Rx] Difluprednate [Durezol] 1 drop RIGHT EYE DAILY 08/01/18 [History] Finasteride [Proscar] 5 mg PO DAILY 08/01/18 [History] Potassium Citrate [Urocit-K] 10 meq PO BID 08/02/18 [History] Tamsulosin [Flomax] 0.4 mg PO DAILY 08/02/18 [History] Atorvastatin [Lipitor] 40 mg PO HS tablet 08/04/18 [Rx] Warfarin [Coumadin] 3 mg PO DAILY #0 08/04/18 [Rx] Bromfenac Sodium [Prolensa] 1 drop RIGHT EYE DAILY 08/19/18 [History] Furosemide [Lasix] 80 mg PO BID 08/19/18 [History] Ipratropium/Albuterol Sulfate [Combivent Respimat 20-100 Mcg] 1 puff IH DAILY PRN 08/19/18 [History] Oxycodone HCl [Roxybond] 5 mg PO Q4H PRN 08/19/18 [History] Spironolactone [Aldactone] 25 mg PO DAILY 08/19/18 [History] Magnesium Hydroxide [Milk of Magnesia] 30 ml PO BID PRN 08/20/18 [History] Nystatin Cream [Mycostatin Cream] 1 appl TP BID 08/20/18 [History] Metoprolol XL (24 HR) Succ [Toprol Xl] 100 mg PO DAILY #60 tab.er.24h 08/24/18 [ Rx] levoFLOXacin [Levaquin] 750 mg PO Q48H #7 tablet 08/24/18 [Rx] Allergies/Adverse Reactions: 3 Allergy/AdvReac Type Severity Reaction Status Date / Time Amoxicillin Allergy Difficulty Verified 08/01/18 09:48 Breathing metronidazole [From Flagyl] Allergy Rash Verified 08/01/18 09:48 sulfamethoxazole Allergy Rash Verified 08/01/18 09:48 [From Bactrim] trimethoprim [From Bactrim] Allergy Rash Verified 08/01/18 09:48 Date of admission: 08/19/18 11:43 Primary care physician: Latha Painter Consults: 08/19/18 13:58 Consult to Cardiology [CONS] Routine Comment: Consulting Provider: Cardiology Gege Reason for Consult: Elevated troponin with atrial fibrillation with RVR Call Completed: No 08/20/18 11:44 Consult to Senior Controls Engineer [CONS] Routine Reason for SW Consult: Patient from [facility] 08/21/18 12:23 Consult to Occupational Therapy [CONS] Routine Comment: Evaluate, develop and implement POC Reason for Consult: Poss return to ECF Does patient have active BEDREST order?: No Is patient medically & hemodynamically stable?: Yes Consult to Physical Therapy [CONS] Routine Comment: Evaluate, develop and implement POC Reason for Consult: Possible return to ECF Does patient have active BEDREST order?: No Is patient medically & hemodynamically stable?: Yes 08/21/18 18:53 Consult to Surgery [CONS] Routine Consulting Provider: Surgery Gege Surgical Reason for Consult: Abdominal incision site infection Call Completed: Yes - Constitutional Vitals: Temp Pulse Resp BP Pulse Ox 97.7 F 71 16 109/86 97 08/24/18 06:59 08/24/18 06:59 08/24/18 06:59 08/24/18 06:59 08/24/18 06:59 General appearance: Present: A&O X 3 - Patient Status Disposition: Home Health Service - Discharge Instructions Instructions: Myocardial Infarction (DC), Heart Failure (DC), Atrial Fibrillation (DC), Chest Pain (DC), Chronic Kidney Disease (GEN), Chronic Hypertension (DC), Anemia (GEN) Follow Up With: Keanu Elizabeth MD [Non-Partnered Physician] - 08/28/18 11:15 am
--- NOTE | 2018-08-24 14:36 | Discharge Summary ---
- NOTES TO OUTPATIENT PROVIDER Notes to Outpatient Provider: f/u with surgery at [place] f/u with pcp for renal function Orders not resulted at time of discharge: Pending orders 08/25/18 04:00 PT/INR [Prothrombin Time INR] [COAG] AM 0400 Date of Encounter: 08/24/18 Time of Encounter: 11:00 - Discharge Diagnosis (1) Acute on chronic systolic (congestive) heart failure Priority: Primary Status: Acute (2) Elevated troponin Priority: Secondary Status: Acute (3) CKD (chronic kidney disease) stage 4, GFR 15-29 ml/min Priority: Secondary Status: Acute (4) Atrial fibrillation Priority: Secondary Status: Chronic Qualifiers: Atrial fibrillation type: chronic Qualified Code(s): I48.2 - Chronic atrial fibrillation (5) Status post small bowel resection Priority: Secondary Status: Chronic (6) Benign prostate hyperplasia Priority: Secondary Status: Acute Qualifiers: Lower urinary tract symptom presence: unspecified whether lower urinary tract symptoms present Qualified Code(s): N40.0 - Benign prostatic hyperplasia without lower urinary tract symptoms (7) Anemia Priority: Secondary Status: Chronic Qualifiers: Anemia type: unspecified type Qualified Code(s): D64.9 - Anemia, unspecified Hospital course: Patient is a 78-year-old male with past medical history significant for ischemic cardiomyopathy with a LVEF of 6-10% status post ICD implant 2017 and CK -MB stage IV with chronic anemia who presents from [facility] as a direct admit due to elevated troponins, A. fib with RVR and acute on chronic systolic heart failure. Patient reports that the midnight prior to admission he noticed flutters in his chest and became short of breath. shelter facility found that patient had elevated heart rate of 145 in addition to elevated troponins and patient was sent to [facility] for further evaluation. At [place] [facility], patient was found to be age of fibrillation with RVR and elevated troponin of 0.43. Patient was transferred to [facility] as a direct admit for further evaluation. Review the patients labs in the EMR revealed the patient had [place] BNP of 3007 with elevated troponin of 0.41 to 0.68 and now 0.81. Chest x-ray also revealed vascular congestion. Cardiology has been consulted for further recommendations. During hospital stay, treated for CHF with IV Lasix Also treated for surgical site wound infection. Patient with elevated creatine on CKD due to Lasix; f/u with PCP - Time Spent with Patient Total time spent providing and/or coordinating discharge services: Less than 30 minutes - Discharge Medications Prescriptions: levoFLOXacin [Levaquin] 750 mg PO Q48H #7 tablet Metoprolol XL (24 HR) Succ [Toprol Xl] 100 mg PO DAILY #60 tab.er.24h Home Medications: Montelukast [Singulair] 10 mg PO HS 08/16/17 [History] Aspirin Enteric Coated [Aspirin EC] 81 mg PO DAILY tablet.dr 08/18/17 [Rx] Difluprednate [Durezol] 1 drop RIGHT EYE DAILY 08/01/18 [History] Finasteride [Proscar] 5 mg PO DAILY 08/01/18 [History] Potassium Citrate [Urocit-K] 10 meq PO BID 08/02/18 [History] Tamsulosin [Flomax] 0.4 mg PO DAILY 08/02/18 [History] Atorvastatin [Lipitor] 40 mg PO HS tablet 08/04/18 [Rx] Warfarin [Coumadin] 3 mg PO DAILY #0 08/04/18 [Rx] Bromfenac Sodium [Prolensa] 1 drop RIGHT EYE DAILY 08/19/18 [History] Furosemide [Lasix] 80 mg PO BID 08/19/18 [History] Ipratropium/Albuterol Sulfate [Combivent Respimat 20-100 Mcg] 1 puff IH DAILY PRN 08/19/18 [History] Oxycodone HCl [Roxybond] 5 mg PO Q4H PRN 08/19/18 [History] Spironolactone [Aldactone] 25 mg PO DAILY 08/19/18 [History] Magnesium Hydroxide [Milk of Magnesia] 30 ml PO BID PRN 08/20/18 [History] Nystatin Cream [Mycostatin Cream] 1 appl TP BID 08/20/18 [History] Metoprolol XL (24 HR) Succ [Toprol Xl] 100 mg PO DAILY #60 tab.er.24h 08/24/18 [ Rx] levoFLOXacin [Levaquin] 750 mg PO Q48H #7 tablet 08/24/18 [Rx] Allergies/Adverse Reactions: 3 Allergy/AdvReac Type Severity Reaction Status Date / Time Amoxicillin Allergy Difficulty Verified 08/01/18 09:48 Breathing metronidazole [From Flagyl] Allergy Rash Verified 08/01/18 09:48 sulfamethoxazole Allergy Rash Verified 08/01/18 09:48 [From Bactrim] trimethoprim [From Bactrim] Allergy Rash Verified 08/01/18 09:48 Date of admission: 08/19/18 11:43 Primary care physician: Latha Painter Consults: 08/19/18 13:58 Consult to Cardiology [CONS] Routine Comment: Consulting Provider: Cardiology Gege Reason for Consult: Elevated troponin with atrial fibrillation with RVR Call Completed: No 08/20/18 11:44 Consult to Parts Coordinator [CONS] Routine Reason for SW Consult: Patient from [facility] 08/21/18 12:23 Consult to Occupational Therapy [CONS] Routine Comment: Evaluate, develop and implement POC Reason for Consult: Poss return to ECF Does patient have active BEDREST order?: No Is patient medically & hemodynamically stable?: Yes Consult to Physical Therapy [CONS] Routine Comment: Evaluate, develop and implement POC Reason for Consult: Possible return to ECF Does patient have active BEDREST order?: No Is patient medically & hemodynamically stable?: Yes 08/21/18 18:53 Consult to Surgery [CONS] Routine Consulting Provider: Surgery Gege Surgical Reason for Consult: Abdominal incision site infection Call Completed: Yes - Constitutional Vitals: Temp Pulse Resp BP Pulse Ox 97.7 F 71 16 109/86 97 08/24/18 06:59 08/24/18 06:59 08/24/18 06:59 08/24/18 06:59 08/24/18 06:59 General appearance: Present: A&O X 3 Exam: Gen.: Nonacute distress, alert and oriented 3 ENT: Mucosal membranes moist Respiratory: Lungs are clear to auscultation bilaterally without any wheezing rhonchi or rales Cardiovascular: Normal S1 and S2 regular rate rhythm no murmurs rubs or gallops Abdomen: Soft, nontender and nondistended with positive bowel sounds Extremities: Bilateral lower extremity edema up to knees Skin: Erythematous area surrounding surgical incision with yellowish exudate - Patient Status Disposition: Home Health Service - Discharge Instructions Instructions: Myocardial Infarction (DC), Heart Failure (DC), Atrial Fibrillation (DC), Chest Pain (DC), Chronic Kidney Disease (GEN), Chronic Hypertension (DC), Anemia (GEN) Follow Up With: Keanu Elizabeth MD [Non-Partnered Physician] - 08/28/18 11:15 am
[2018-08-24] MEDS ORDERED: Furosemide 40 MG TABLET PO SCH (17:00)
[2018-08-24] MEDS ORDERED: *HR* Warfarin 2.5 MG TABLET PO ONE (18:00)
== END 2018-08-24 15:41 | disposition home health service (06) | DRG 291 ==
LOC: 2NENU 11:43 → SUATTDRO 11:43
PROVIDERS: ADMIT Internal Medicine; ATTEND Hospitalist